=== PATIENT | female | born 1950 | race Caucasian/White ===

== ENCOUNTER 2020-02-19 13:35 | Outpatient (CLI) | payer MEDICARE, SELFPAY ==
--- NOTE | 2020-02-19 15:08 | ECG_ITS ---
Measurements Intervals [place] Rate: 62 P: 56 IA: 178 QRS: 4 QRSD: 76 T: 15 QT: 397 QTc: 404 Interpretive Statements SINUS RHYTHM LOW QRS VOLTAGE IN PRECORDIAL LEADS BORDERLINE R WAVE PROGRESSION, ANTERIOR LEADS BORDERLINE T WAVE ABNORMALITY- INFERIOR LEADS BASELINE ARTIFACT- I, II, III, AVR, AVL, AVF BORDERLINE ECG Electronically Signed On 02-19-2020 16:45:51 PERFECT BINDER OPERATOR by Олег Sherman D.O.
[2020-02-19 15:50] LABS: Basophils Percent Auto 0.4 % (0.2-1.2); Eosinophils Absolute Auto 0.1 K/mm3 (0-0.3); Eosinophils Percent Auto 0.7 % (0-4.4); Hemoglobin 14.2 g/dL (12.0-15.0); Immature Granulocyte Absolute 0.03 K/mm3 (0.00-0.031); Immature Granulocyte Percent A 0.4 % (0-0.5); Lymphocytes Absolute Auto 3.18 K/mm3 (0.9-3.2); Lymphocytes Percent Auto 38.4 % (18.3-44.2); Mean Corpuscular Hemoglobin 33.6 pg (26-34); Mean Corpuscular Volume 101.9 fl (80-100); Mean Platelet Volume 9.2 fl (7.4-10.4); Monocytes Absolute Auto 0.6 K/mm3 (0.1-0.6); Monocytes Percent Auto 7.1 % (2.6-8.5); Neutrophils Absolute Auto 4.4 K/mm3 (1.3-6.7); Platelet Count Result 318 k/mm3 (150-375); Red Blood Count 4.22 M/mm3 (4.2-5.4); Red Cell Distribution Width 11.9 % (11.5-14.5); White Blood Count 8.3 K/mm3 (4.5-10.0)
[2020-02-19 15:59] LABS: INR 0.8
[2020-02-19 16:00] LABS: Partial Thromboplastin Time 26.9 SECONDS (22.3-36.8)
[2020-02-19 16:02] LABS: Alanine Aminotransferase 24 U/L (4-35); Albumin Level 4.6 g/dL (3.5-5.1); Alkaline Phosphatase 87 U/L (38-126); Anion Gap 7 mmol/L (8-16); Aspartate Amino Transferase 31 U/L (14-36); Bilirubin,Total 0.4 mg/dL (0.2-1.3); Blood Urea Nitrogen 22 mg/dL (7-17); Calcium 9.8 mg/dL (8.4-10.2); Carbon Dioxide 32 mmol/L (22-30); Chloride 101 mmol/L (98-107); Estimated Glomerular Filt Rate > 60; Glucose 88 mg/dL (65-105); Potassium 4.2 mmol/L (3.4-5.0); Sodium 140 mmol/L (137-145)
== END 2020-02-19 13:36 | disposition home or self-care (01) ==
PROVIDERS: PCP Family Medicine; Visit Provider Urology
DX: Z01.818 Encounter for other preprocedural examination (principal); N81.10 Cystocele, unspecified; N39.3 Stress incontinence (female) (male)
CPT/HCPCS: 36415; 80053; 85025; 85610; 85730; 86850; 86900; 86901; 87077; 87086; 87088; 87186; 93005

== ENCOUNTER 2020-02-26 00:06 | Outpatient (CLI) | payer MEDICARE, SELFPAY ==
[2020-02-26 19:24] LABS: SARS-CoV-2 RNA PCR Negative
== END 2020-02-26 00:07 | disposition home or self-care (01) ==
LOC: ANHCOVIDDT 00:06
PROVIDERS: PCP Family Medicine; Visit Provider Urology
DX: Z20.828 Contact with and (suspected) exposure to other viral communicable diseases (principal)
CPT/HCPCS: 87635; C9803; U0003

== ENCOUNTER 2020-02-29 01:12 | Day surgery (SDC) | payer MEDICARE, SELFPAY ==
[2020-02-19 14:18] VITALS: BP 140/78; PULSE 72; RESP 16; TEMP 36.7; O2SAT 99; BMI 29.0
--- NOTE | 2020-02-27 08:16 | PM.IMHP ---
H&P: HPI History of Present Illness Date/Time: 02/27/20 08:16 Chief complaint: cystocele, stress incontinence,ovarian cyst Narrative: Liz Howell is a 69 year old female with POP Review of Systems Review of Systems: All systems reviewed & are unremarkable except as noted in HPI and below PMFSH Past Medical History Medical History Acid reflux History of multiple miscarriages x 3 Vaginal delivery x 2 Surgical History Surgical History H/O dilation and curettage H/O: hysterectomy History of cholecystectomy Previous back surgery Family History Family History Sibling Breast cancer Sibling Hypertension Sibling Hypercholesterolemia Father Acute myocardial infarction Mother Acute myocardial infarction Social History Social History Smoking packs per day: 1 Smoking cigarettes per day: 20.0 Years smoked: 22 Smoking pack-years: 22.00 Smoking status: Former smoker Tobacco type: cigarettes Smoking end date: 02/06/89 Alcohol intake: former Drinks per week: 1 Substance use: never Spiritual care concerns: No Meds Home Medications and Allergies Home Medications Medication Instructions Recorded Confirmed Type estradiol 0.5 mg tablet 0.5 mg PO DAILY 12/16/19 02/19/20 History glucosamine-chondroitin 250 mg-200 1 tablet PO DAILY 12/16/19 02/19/20 History mg tablet meloxicam submicronized 5 mg 5 mg PO DAILY 12/16/19 02/19/20 History capsule omega 5-uwe-prn-fish oil 1,000 mg 1 cap PO DAILY 12/16/19 02/19/20 History (120 mg-180 mg) capsule tramadol 50 mg tablet 50 mg PO BID PRN 12/16/19 02/19/20 History cholecalciferol (vitamin D3) 25 mcg PO DAILY 02/19/20 02/19/20 History [Vitamin D3] magnesium 250 mg PO DAILY 02/19/20 02/19/20 History vitamin B complex [B 1 tablet PO DAILY 02/19/20 02/19/20 History Complex-Vitamin B12] Allergies Allergy/AdvReac Type Severity Reaction Status Date / Time Sulfa (Sulfonamide Allergy Intermediate Rash Verified 02/19/20 14:10 Antibiotics) Exam Const: General: cooperative and healthy appearing HENMT: Head: normal to inspection Neck: Neck: normal visual inspection Resp: Effort & Inspection: normal respiratory effort and able to speak in complete sentences GI: Inspection: normal to inspection : Bimanual Exam- Adnexa, other: vaginal apex descent (+3) Skin: General skin exam: normal color Extrem: General: normal to inspection Assessment and Plan Assessment and plan (1) Prolapse of vaginal vault after hysterectomy: Code(s): N99.3 - Prolapse of vaginal vault after hysterectomy Status: Acute Assessment and Plan: Robotic Sacral Colpopexy
[2020-02-29] VITALS (10 sets, daily range): BP systolic 81–136; BP diastolic 39–94; PULSE 56–89; RESP 12–18; TEMP 35.8–36.6; O2SAT 97–100
--- NOTE | 2020-02-29 07:18 | WPDHPUPDATE1 ---
History and Physical Update Update Date/Time: 02/29/20 07:18 History and Physical has been reviewed, including an updated exam of the patient. There are NO changes in the patient's condition. Risks, benefits, and alternatives have been discussed and questions answered. Patient agrees to proceed with procedure.
[2020-02-29] MEDS: ACETAMINOPHEN 500 MG TABLET 1000 MG PO (08:55)
[2020-02-29] MEDS: LACTATED RINGERS 1,000 ML 30 ML IV CONT ×2 (09:00→13:34)
[2020-02-29] MEDS: KETOROLAC 15 MG/ML VIAL (*BKC) IV PUSH (09:15)
--- NOTE | 2020-02-29 09:22 | WPDANESEPPF ---
Anes - Initial Pre Proc Eval Procedure: Operation Date: 02/29/20 10:30 Proposed Procedures p Robotic Sacrocolpopexy - Anshu Engel MD s Laparoscopic Left Oophorectomy, Davinci Assisted - Livan Schulte MD Date/Time: 02/29/20 09:22 Surgeon: Anshu Engel MD Pre Op Diagnosis: cystocele, stress incontinence,ovarian cyst Patient Data Age: 69 Gender: F Height: 5 ft 2 in Weight: 72.1 kg Last Vital Signs Temp 98.0 F 02/19/20 14:18 Pulse 72 02/19/20 14:18 Resp 16 02/19/20 14:18 BP 140/78 02/19/20 14:18 Pulse Ox 99 02/19/20 14:18 Allergies Allergy/AdvReac Type Severity Reaction Status Date / Time Sulfa (Sulfonamide Allergy Intermediate Rash Verified 02/29/20 09:20 Antibiotics) Home Medications Medication Instructions Recorded Confirmed Type estradiol 0.5 mg tablet 0.5 mg PO DAILY 12/16/19 02/29/20 History glucosamine-chondroitin 250 mg-200 1 tablet PO DAILY 12/16/19 02/29/20 History mg tablet meloxicam submicronized 5 mg 5 mg PO DAILY 12/16/19 02/29/20 History capsule omega 3-gxz-tws-fish oil 1,000 mg 1 cap PO DAILY 12/16/19 02/29/20 History (120 mg-180 mg) capsule tramadol 50 mg tablet 50 mg PO BID PRN 12/16/19 02/29/20 History cholecalciferol (vitamin D3) 25 mcg PO DAILY 02/19/20 02/29/20 History [Vitamin D3] magnesium 250 mg PO DAILY 02/19/20 02/29/20 History vitamin B complex [B 1 tablet PO DAILY 02/19/20 02/29/20 History Complex-Vitamin B12] Patient hx anesthesia problems: none Family hx anesthesia problems: none PMFSH Past Medical History Medical History (Updated 02/29/20 @ 09:22 by Toni Zambrano MD) Acid reflux Chronic back pain History of multiple miscarriages x 3 Vaginal delivery x 2 Surgical History Surgical History H/O dilation and curettage H/O: hysterectomy History of cholecystectomy Previous back surgery Family History Family History Sibling Breast cancer Sibling Hypertension Sibling Hypercholesterolemia Father Acute myocardial infarction Mother Acute myocardial infarction Social History Social History Smoking packs per day: 1 Smoking cigarettes per day: 20.0 Years smoked: 22 Smoking pack-years: 22.00 Smoking status: Former smoker Tobacco type: cigarettes Smoking end date: 02/06/89 Alcohol intake: former Drinks per week: 1 Alcohol use details: DRANK RARELY YOUNG ADULT Substance use: never Living arrangements: alone Spiritual care concerns: No Anes - Eval Final PreProcedure Day of Procedure 02/29/20 09:22 Patient weight: normal Heart: regular rate and rhythm Lungs: clear to auscultation Airway: Mallampati scale class II Neurological: alert and oriented Last oral intake: >/= 8 hours ASA classification: III Emergent: no Anesthetic plan: proceed Anesthesia type and monitoring: general ETT and standard monitoring Informed Consent: The patient's anesthetic plan and its attendant risks and benefits were discussed with the patient/family/POA. Questions were solicited and answers provided to the satisfaction of the patient/family/POA.
--- NOTE | 2020-02-29 10:04 | PM.IMHP ---
H&P: HPI History of Present Illness Date/Time: 02/29/20 10:04 Chief complaint: cystocele, stress incontinence,ovarian cyst Narrative: Liz Howell is a 69 year old female presented for evaluation of a 6cm adnexal cyst seen on imaging. She is asymptomatic. She had a normal Ca125. Her history is significant for a hysterectomy and left oophorectomy and prior to that she had a right oophorectomy. She was informed of the possible etiologies of the cyst to include ovarian remnant, inflammation, tubal segment. She was given option of expectant management but since she was evaluated for prolapse by Dr. Engel and has planned vaginal vault sacrocolpopexy then can remove the cyst at that time which she wishes to proceed with removal of the cyst at the same time. Discussed that if any abnormal pathology then she may need for evaluation or referral. Review of Systems Review of Systems: All systems reviewed & are unremarkable except as noted in HPI and below Cardiovascular: Cardiovascular: Reports no additional cardiovascular complaints, Denies chest pain and Denies dyspnea Respiratory: Respiratory: Reports no additional respiratory complaints and Denies dyspnea Gastrointestinal: Gastrointestinal: Reports abdominal pain, Denies change in bowel habits, Denies diarrhea, Denies nausea and Denies vomiting Musculoskeletal: Musculoskeletal: Reports back pain Integumentary/Breasts: Skin/Breast: Reports system reviewed and no additional complaints, except as docu Neurologic: Reports system reviewed and no additional complaints, except as documented PMFSH Past Medical History Medical History Acid reflux Chronic back pain History of multiple miscarriages x 3 Vaginal delivery x 2 Surgical History Surgical History H/O dilation and curettage H/O: hysterectomy History of cholecystectomy Previous back surgery Family History Family History Sibling Breast cancer Sibling Hypertension Sibling Hypercholesterolemia Father Acute myocardial infarction Mother Acute myocardial infarction Social History Social History Smoking packs per day: 1 Smoking cigarettes per day: 20.0 Years smoked: 22 Smoking pack-years: 22.00 Smoking status: Former smoker Tobacco type: cigarettes Smoking end date: 02/06/89 Alcohol intake: former Drinks per week: 1 Alcohol use details: DRANK RARELY YOUNG ADULT Substance use: never Living arrangements: alone Spiritual care concerns: No Meds Home Medications and Allergies Home Medications Medication Instructions Recorded Confirmed Type estradiol 0.5 mg tablet 0.5 mg PO DAILY 12/16/19 02/29/20 History glucosamine-chondroitin 250 mg-200 1 tablet PO DAILY 12/16/19 02/29/20 History mg tablet meloxicam submicronized 5 mg 5 mg PO DAILY 12/16/19 02/29/20 History capsule omega 5-vht-rcp-fish oil 1,000 mg 1 cap PO DAILY 12/16/19 02/29/20 History (120 mg-180 mg) capsule tramadol 50 mg tablet 50 mg PO BID PRN 12/16/19 02/29/20 History cholecalciferol (vitamin D3) 25 mcg PO DAILY 02/19/20 02/29/20 History [Vitamin D3] magnesium 250 mg PO DAILY 02/19/20 02/29/20 History vitamin B complex [B 1 tablet PO DAILY 02/19/20 02/29/20 History Complex-Vitamin B12] Allergies Allergy/AdvReac Type Severity Reaction Status Date / Time Sulfa (Sulfonamide Allergy Intermediate Rash Verified 02/29/20 09:20 Antibiotics) Vital Signs Vital Signs - 24 hr 02/29/20 08:32 Temperature 96.5 F L Pulse Rate 60 Respiratory Rate 18 Blood Pressure 135/56 L Pulse Oximetry 100 Exam Const: Orientation/consciousness: oriented to person and oriented to place HENMT: Head: normal to inspection Eyes: General: appearance normal, both eyes an
--- NOTE | 2020-02-29 10:46 | WPDHPUPDATE1 ---
History and Physical Update Update Date/Time: 02/29/20 10:46 History and Physical has been reviewed, including an updated exam of the patient. There are NO changes in the patient's condition. Risks, benefits, and alternatives have been discussed and questions answered. Patient agrees to proceed with procedure.
[2020-02-29] MEDS: ceFAZolin 2 GM/D5W 50 ML 2 GM/50 ML BAG IVPB (10:51)
--- NOTE | 2020-02-29 11:38 | PM.PROC ---
Procedure Note - Detailed Date of procedure: 03/28/20 Pre-op diagnosis: cystocele, stress incontinence,ovarian cyst 1. left Adnexal cyst Post-op diagnosis: same Procedure performed: Excision of left adnexal cyst Description of procedure: I assumed care after Dr. Engel placed ports. He performed lysis adhesions in the pelvis. I then lysed the remaining adhesions along the left pelvic sidewall which freed the cyst from the wall the cyst was completely freed and excised. The cyst was placed in the endocath bag. Dr. Engel then resumed care. Anesthesia: GETA Surgeon: Livan Schulte MD Estimated blood loss (mL): 0 Drains: No Packing: No Pathology: yes (left adnexal cyst consistent with fallopian tube and hydrosalpinx) Complications: No immediate complications Condition: stable Disposition: other Findings: 6cm cyst which appeared to be fallopian tube structure attached to left upper side wall.
--- NOTE | 2020-02-29 13:20 | PM.PROC ---
Procedure Note - Detailed Date of procedure: 02/29/20 Pre-op diagnosis: cystocele, stress incontinence,ovarian cyst Procedure performed: Robotic assisted laparoscopic sacral colpopexy Description of procedure: She understands the risks of bleeding, infection, diskitis, damage to surrounding organs, bowel injury, bowel obstruction, recurrence of prolapse, postoperative voiding dysfunction including incontinence and retention, dyspareunia, mesh related complications including exposure and extrusion, need for ancillary procedures. She agrees to proceed. She was correctly identified and informed consent was obtained. She is brought to the operating room. She was given general anesthesia. She was placed in the low lithotomy position. She was prepped and draped in a sterile fashion. She was given appropriate perioperative antibiotics. A time-out was performed. I anesthetized the skin 3 fingerbreadths above the umbilicus. I incised the skin. I grasped the fascia with Stanislav clamps. I entered the fascia sharply. I placed sutures for later fascial closure. I placed a midline trocar. Under direct vision I placed 2 additional trocars in the right and left upper quadrant. She was placed in steep Trendelenburg and the robot was docked. I sat at the console. Adhesions iwere taken down with a combination of blunt and sharp dissection with no cautery taking great care not to injure surrounding organs. Her mortgage professional removed an adnexal cyst. Please see that operative report. With the Sizer in the vagina and created a plane on the anterior and posterior vaginal wall for several cm using great care not to injure the vagina bladder or rectum. I introduced the mesh into the abdomen. I sewed the anterior leaflet of mesh on the anterior vaginal wall and posterior leaflet of mesh on the posterior vaginal wall with several sutures of 2 0 [place]-Pedro taking great care not to go through and through. I reflected the colon laterally. I opened up the peritoneum over the sacral promontory. I carried this into the cul-de-sac freeing up the edges. I located the ureter and kept lateral. I dissected down to the fatty tissues to locate the anterior longitudinal ligament of the sacrum. Any vessels were controlled with bipolar cautery. I tensioned my mesh appropriately. I did a vaginal exam to assure prolapse reduction without undue tension. There is no sign of any mesh exposure in the vagina. I then sewed the proximal leaflet of mesh onto the ligament with 3 sutures of 2 2 0 [place]-Pedro. I then used a 2 0 Monocryl to completely and meticulously retroperitonealized all mesh. I allowed the colon to go back into its normal anatomic location. There is no sign of any impingement. The abdomen was exited. Fascial sutures were closed. Skin was closed with 4 0 Monocryl and glue was applied. On cystoscopy there is no sign of any violation of the bladder or urethra and no foreign bodies. Ureteral orifices were seen to excrete clear yellow urine. There was no leakage on Crede a maneuver. The Coughlin catheter is replaced. She was then awakened and transferred to the PACU in stable condition. Anesthesia: GET Surgeon: Anshu Engel MD Drains: Yes (Coughlin catheter) Packing: No Pathology: none sent Complications: No immediate complications Condition: stable Disposition: PACU
[2020-02-29] MEDS: ONDANSETRON INJ 4 MG/2 ML VIAL IV PUSH (14:02)
[2020-02-29] MEDS: fentaNYL CITRATE INJ (*CRX) 100 MCG/2 ML VIAL 25 MCG IV PUSH ×4 (14:03→14:19)
[2020-02-29] MEDS: MEPERIDINE HCL INJ (*CRX) 50 MG/ML AMPUL 12.5 MG IV PUSH (14:31)
--- NOTE | 2020-02-29 14:36 | SUR.PHASEI ---
1430 pt complaints shivering,called dr lujan,orders for demerol ,and given with relief of shivering.
--- NOTE | 2020-02-29 15:32 | SUR.PHASEII ---
PT UP TO BATHROOM; PT STATED SHE FELT DISCHARGE FROM URETHRA; PERIPAD SATURATED WITH CLEAR FLUID.
[2020-02-29] MEDS: oxyCODONE HCL (*CRX) 5 MG TAB IR PO (15:47)
== END 2020-02-29 16:24 | disposition home or self-care (01) ==
PROVIDERS: Obstetrics & Gynecology; PCP Family Medicine; Visit Provider Urology
PROC: (CPT 57425; principal; 2020-02-29 10:30)
PROC: 8E0W4CZ Robotic Assisted Procedure of Trunk Region, Percutaneous Endoscopic Approach (ICD-10-PCS; CPT 49320; 2020-02-29 10:30)
DX: N99.3 Prolapse of vaginal vault after hysterectomy (principal); N39.3 Stress incontinence (female) (male); N83.202 Unspecified ovarian cyst, left side; N70.11 Chronic salpingitis; Z87.891 Personal history of nicotine dependence
CPT/HCPCS: 57425; 58662; S2900; 88305; A9270; C1781; J0690; J1100; J1885; J2175; J2250; J2405; J2704; J2710; J3010; J7030; J7120

== ENCOUNTER 2024-11-27 15:39 | Emergency (ER) | payer MEDICARE, SELFPAY ==
--- OUTSIDE RECORDS SUMMARY | 2024-11-27 15:41 | XMS_ITS | Encounter Summary ---
[facility] Organization [facility] Address [address] [place] [address] Phone Care Team Providers Care Police Shift Commander Name Role Phone Murtaza Porras MD Primary Care Provider [phone] Lindsey Hong APRN, DRIFT MINER Unavailable [phone] Marisela Zheng MD Primary Care Provider [phone] Bubba Fung Primary Care Provider [phone] Reason for Referral * Radiology Services (Routine) - Closed Specialty Diagnoses / Procedures Referred By Bebeto roberts Referred To Contact Radiology Diagnoses Pre-op exam Procedures EKG 12 LEAD Raj Ferrer MD Phone: tel: fax: Referral ID Status Reason Start Date Expiration Date Visits Re quested Visits Authorized [id number] Closed 05/22/2021 1 1 IOPULMONARY TECHNOLOGIST Encounter Details Date Type Department Care Team (Latest Contact Info) Description 05/22/2021 Transcribe Orders [facility] Patient Access Admitting [address] [place] [id number] Raj Ferrer MD [address] [place] [address] Pre-op exam (Primary Dx) Social History Tobacco Use Types Packs/Day Years Used Date Smoking Tobacco: Former Cigarettes 1 20 0 10/15/1970 - 10/15/1990 Smokeless Tobacco: Never Comments:quit 27 years ago Alcohol Use Standard Drinks/Week Comments No 0 (1 standard drink = 0.6 oz pur e alcohol) none PHQ-2 Answer Date Recorded Total Score - Questions 1-9 0 08/07 Education Answer Date Recorded What is the highest level of school you have completed or the highest degree you have received? 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 No / Unsure 05/22/2021 9:10 PM CARDIOPULMONARY TECHNOLOGIST documented as of this encounter Plan of Treatment Upcoming Encounters Date Type Department Care Team (Late st Contact Info) Description 02/12/2025 8:40 AM CARDIOPULMONARY TECHNOLOGIST Lab [facility] - [address] [address] [facility] 02/19/2025 9:00 AM CARDIOPULMONARY TECHNOLOGIST Office Visit [facility] - [place] [address] [place] [address] Bubba Fung, PAC [address] [place] [address] documented as of this encounter Results * EKG 12 LEAD (05/23/2021 11:33 AM CARDIOPULMONARY TECHNOLOGIST) Ventricular Rate BPM EXTERNAL EKG Atrial Rate BPM EXTERNAL EKG P-R Interval 152 ms EXTERNAL EKG QRS Duration 70 ms EXTERNAL EKG Q-T Duration 336 ms EXTERNAL EKG QTC CALCULATION 388 ms EXTERNAL EKG P [place] 68 degrees EXTERNAL EKG R [place] 61 degrees EXTERNAL EKG T [place] 10 degrees EXTERNAL EKG 05/23/2021 11:3 3 AM CARDIOPULMONARY TECHNOLOGIST Impressions EXTERNAL EKG - 05/24/2021 11:50 AM CARDIOPULMONARY TECHNOLOGIST Sinus rhythm Anterior T wave abnormality is nonspecific Comparison Summary: No serial comparison made Summary: Borderline ECG Confirmed by Johnathon Cortez [id number] on 05/24/2021 11:50:14 AM Narrative Procedure Note Arabella Diego MD - 05/24/2021 IMPRESSION: Sinus rhythm Anterior T wave abnormality is nonspecific Comparison Summary: No serial comparison made Summary: Borderline ECG Confirmed by Johnathon Cortez [id number] on 05/24/2021 11:50:14 AM us Raj Ferrer MD IMG ECG ORDERABLES Final Result EXTERNAL EKG * (ABNORMAL) CMP (COMPREHENSIVE METABOLIC PANEL) (05/23/2021 11:28 AM CARDIOPULMONARY TECHNOLOGIST) SODIUM 141 136 - 144 mmol/L 05/23/2021 12:32 PM CARDIOPULMONARY TECHNOLOGIST [facility] POTASSIUM 4.6 3.5 - 5.1 mmol/L 05/23/2021 12:32 PM [facility] CHLORIDE 106 100 - 110 mmol/L 05/23/2021 12:32 PM [facility] CO2, VENOUS 25 22 - 32 mmol/L 05/23/2021 12:32 PM CARDIOPULMONARY TECHNOLOGIST [facility] ANION GAP 14.6 8.0 - 20.0 mmol/L 05/23/2021 12:32 PM CARDIOPULMONARY TECHNOLOGIST [facility] GLUCOSE 85 70 - 99 mg/dL 05/23/2021 12:32 PM CARDIOPULMONARY TECHNOLOGIST [facility] BUN 18 8 - 23 mg/dL 05/23/2021 12:32 PM [facility] CREATININE, BLOOD 0.68 0.60 - 1.10 mg/dL 05/23/2021 12:32 PM [facility] BUN/CREATININE RATIO 26(H) 12 - 20 ratio 05/23/2021 12:32 PM [facility] TOTAL PROTEIN 7.1 6.0 - 8.3 g/dL 05/23/2021 12:32 PM [facility] ALBUMIN 4.5 3.5 - 5.2 g/dL 05/23/2021 12:32 PM [facility] Comment: The colormetric methods used for the determination of Albumin may lead to falsely elevated test results in patients suffering from renal failure or insufficiency due to interference with other proteins. A/G RATIO 1.7 1.0 - 2.0 05/23/2021 12:32 PM [facility] CALCIUM 9.5 8.9 - 10.3 mg/dL 05/23/2021 12:32 PM [facility] T BILI <0.3 <=1.2 mg/dL 05/23/2021 12:32 PM [facility] SGOT (AST) 20 <=32 U/L 05/23/2021 12:32 PM [facility] SGPT (ALT) 19 <=41 U/L 05/23/2021 12:32 PM [facility] ALKALINE PHOSPHATASE 81 35 - 105 U/L 05/23/2021 12:32 PM [facility] GFR, EST. NONAFRICAN >60 >=60 05/23/2021 12:32 PM [facility] GFR, EST. >60 >=60 022 12:32 PM [facility] Comment: Creatinine Clearance is the preferred criteria for selecting drug dose adjustments in renally impaired patients. The GFR is provided as additional pertinent clinical information. GFR is reported in mL/min/1.73 sq m. IS THE PATIENT REQUIRED TO BE FASTING? No 05/23/2021 12:32 PM [facility] Blood Venipuncture / Unknown 05/23/2021 11:28 AM CARDIOPULMONARY TECHNOLOGIST 05/23/2021 11:47 AM CARDIOPULMONARY TECHNOLOGIST us Raj Ferrer MD CHEMISTRY ORDERABLES Final Resul t [facility] [address] [place] [address] documented in this encounter Visit Diagnoses Diagnosis Pre-op exam- Primary Preoperative examination, unspecified Pre-op exam Preoperative examination, unspecified documented in this encounter Additional Health Concerns Assessment Noted Time PHQ-9 Depression Total Score: 0 09/01/19 20 8:22 AM CDT documented as of this encounter Care Teams Police Shift Commander Relationship Specialty Start Date End Date Murtaza Porras MD #[address] [address] PCP - General Family Medicine 03/16/16 07/02/22 Marisela Zheng MD [address] [place], [place] [id number] PCP - General Family Medicine 07/03/22 01/31/23 Bubba Fung, PAC [address] [place] [id number] PCP - General Physician [employer] Set Up Technician 02/01/23 Lindsey Hong, TECHNICAL SALES REPRESENTATIVE, DRIFT MINER [address] [address] Nurse Practitioner Advanced Practice Nurse 03/22/16 documented as of this encounter
--- OUTSIDE RECORDS SUMMARY | 2024-11-27 15:41 | XMS_ITS | Encounter Summary ---
Author Organization [facility] Address [address] [place] [address] Phone Care Team Providers Care Satellite Television Installer Name Role Phone Murtaza Porras MD Primary Care Provider [phone] Lindsey Hong APRN, DENTIST Unavailable [phone] Marisela Zheng MD Primary Care Provider + [phone] Bubba Fung Primary Care Provider + [phone] Reason for Visit * Reason Comments Medication Refill Encounter Details Date Type Department Care Team (Late st Contact Info) Description 11/22/2020 Refill [facility] - Family Medicine [facility] [address] [place] [address] Murtaza Porras MD [address] [address] Medication Refill Social History Tobacco Use Types Packs/Day Years [...] have received? 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 Requested Prescriptions Pending Prescriptions Disp Refills estradiol (ESTRACE) 0.5 MG Tablet [Pharmacy Med Name: ESTRADIOL 0.5MG TABLETS] 90 Tablet 2 Sig: TAKE 1 TABLET BY MOUTH DAILY Not Delegated - Estrogen and Estrogen Combinations Protocol Failed - 11/22/2020 3:10 AM Failed - This refill cannot be delegated Passed - Visit with relevant provider in past 12 months or upcoming 90 days Recent Visits Date Type Provider Dept 09/30/20 Office Visit Murtaza Porras MD [facility] 04/20/20 Telemedicine Murtaza Porras MD [facility] 03/29/20 Office Visit Murtaza Porras MD [facility] Showing recent visits within past 365 days and meeting all other requirements Future Appointments No visits were found meeting these conditions. Showing future appointments within next 90 days and meeting all other requirements documented in this encounter Plan of Treatment Upcoming Encounters Date Type Department Care Team (Late st Contact Info) Description 02/12/2025 8:40 AM HEALTH PLAN MANAGER Lab [facility] [address] [place] [address] [facility] 02/19/2025 9:00 AM HEALTH PLAN MANAGER Office Visit [facility] Primary [facility] [place] [address] [place] [address] Bubba Fung, [facility] [address] [place] [id number] documented as of this encounter Visit Diagnoses Not on filedocumented in this encounter Additional Health Concerns Infection Onset Date Last Indicated Resolved Time COVID - 19 03/05/2021 03/05/2021 03/25/2021 12:1 6 AM HEALTH PLAN MANAGER Assessment Noted Time PHQ-9 Depression Total Score: 0 09/01/19 20 8:22 AM CDT documented as of this encounter Care Teams Satellite Television Installer Relationship Specialty Start Date End Date Murtaza Porras MD [address] [address] PCP - General Family Medicine 03/16/16 07/02/22 Marisela Zheng MD [address] [place], [place] [id number] PCP - General Family Medicine 07/03/22 01/31/23 Bubba Fung, PAC [address] [place] [phone] PCP - General Physician Enterprise Resource Analyst 02/01/23 Lindsey Hong, STE[employer] FORM PLACING SUPERVISOR, DENTIST [address] [address] Nurse Practitioner Advanced Practice Nurse 03/22/16 documented as of this encounter
--- OUTSIDE RECORDS SUMMARY | 2024-11-27 15:41 | XMS_ITS | Clinical Summary ---
Author Organization [facility] Address [address], [facility] [address] [place] [address] Phone Care Team Providers Care Freezer Unloader Name Role Phone Lindsey Hong APRN, SALES REPRESENTATIVE ELECTRIC SERVICE Unavailable Bubba Fung PAC Primary Care Provider Allergies Active Allergy Reactions Criticality Noted Date Comments Amoxicillin-Pot Clavulanate Itching 11/14/19 24 Dizziness, itching Sulfa Antibiotics Hives 03/30/2016 Medications traMADol (ULTRAM) 50 MG Tablet Take 50 mg by mouth 3 times daily as needed. 03/14/20 16 Active [place]-3 Fatty Acids (FISH OIL PO) Take by mouth daily. Active meloxicam (MOBIC) 7.5 MG Tablet TK 1 T PO QD WF 3 06/26/19 18 Active Glucosamine-Chondroitin (OSTEO BI-FLEX REGULAR STRENGTH PO) Take by mouth. Active cetirizine (ZyrTEC) 10 MG Tablet Take 10 mg by mouth as needed. Active Cyanocobalamin (B-12 PO) Take by mouth. Active Cholecalciferol (Vitamin D3) 25 MCG (1000 UT) Capsule Take 1,000 Units by mouth daily. 90 Capsule 3 11/23/19 22 Active CALCIUM PO Take by mouth. Active omeprazole (PriLOSEC) 20 MG CAPSULE DELAYED RELEASEIndications:Gastr oesophageal reflux disease, unspecified whether esophagitis present Take 1 Capsule by mouth daily. 90 Capsule 3 08/13/19 25 Active atorvastatin (LIPITOR) 10 MG TabletIndications:Pure hypercholesterolemia Take 1 Tablet by mouth daily. 90 Tablet 3 08/13/19 25 Active estradiol (ESTRACE) 0.5 MG Tablet TAKE 1 TABLET BY MOUTH EVERY DAY 90 Tablet 10/22/19 25 Active Active Problems Problem Noted Date Diagnosed Date Metatarsalgia of left foot 08/12/2024 Macrocytosis without anemia 02/01/2023 Secondary osteoporosis 06/07/2022 Liver lesion 03/22/2021 Squamous cell carcinoma in situ (SCCIS) of skin 09/30/2020 Chronic right shoulder pain 09/30/2020 B12 deficiency 09/30/2020 Obesity (BMI 30-39.9) 03/29/2020 Hyperlipidemia 09/01/2019 Insomnia 09/18/2018 Generalized OA 03/20/2018 Conductive hearing loss, tympanic membrane 07/17 Tympanosclerosis involving tympanic membrane onl y, right 07/17/2017 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, left 07/17/2017 Chronic otitis media of right ear 07/17/2017 Perforated ear drum, right 07/17/2017 Ear ossicle partial loss or necrosis, right 07/07 Vitamin D deficiency 03/26/2016 Gastroesophageal reflux disease 03/16/2016 History of back surgery 03/16/2016 Chronic pain syndrome 03/16/2016 Resolved Problems Problem Noted Date Diagnosed Date Resolved Date Yeast infection of the vagina 03/07/2022 02/01/2023 Hormone replacement therapy (HRT) 11/22/2021 08/12/2024 Left ovarian cyst 11/13/2019 08/12/2024 Hematuria 09/01/2019 02/01/2023 Blood pressure elevated with out history of HTN 03/16/2016 02/01/2023 Overweight 03/16/2016 02/01/2023 Encounters Date Type Department Care Team Description 10/21/2024 Refill [facility] - [place] [address] [place] [address] Bubba Fung, LUPE Medication Refill from Last 3 Months Immunizations Immunization Administration Dates Next Due Covid-19, Mrna, Lnp-s, PF, 1 00 mcg/0.5 mL Dose (Moderna) 06/27/2020,05/27/2020 Influenza Vaccine 02/18/2017,02/26/2016 Influenza Vaccine greater than 3 yrs 02/2020,01/02/2019,12/16/2017,02/18,02/26/2016 Influenza Vaccine less than 3 yrs 01/02/2019 Influenza, High-dose, Quadrivalent 01/24/2021,,02/26/2016 Influenza, Injectable, Mdck,quadrivalent,with Preservative 01/02/2019 Influenza, Quadrivalent, Adjuvanted 02/01/2023,0 01/04/2022 Influenza, Seasonal, Injecta ble, Undefined 03/18/2020,01/02/2019,12/16/2017,02/26 Influenza, high-dose, trivalent, PF 06/2023,03/18/2020,02/18/2017,02/25 PNEUMONIA ADULT IM PPSV23 12/16/2017 PUR PCV-13 07/12/2016 Pneumococcal Vaccine - 13 Valent 12/16/2017,09/2016 Pneumococcal Vaccine Adult - 23 Valent 8 Pneumococcal conjugate PCV20 , polysaccharide [id number] conjugate, adjuvant, PF 03/13/2023 RSV, Recombinant, Protein Galvez bunit Rsvpref, Adjuvant Recon (Arexvy) 03/13/2023 TDAP Vaccine 11/03/2024 Zoster Vaccine Recombinant 11/03/2024,08/11/2024 Family History Medical History Relation Name Comments Heart Attack Brother Heart Attack Father Diabetes Maternal Grandmother Autoimmune Disease Mother HEPATITIS Liver Disease Mother Uterine Cancer Sister 1 Breast Cancer Sister 2 Relation Name Status Comments Brother Father Maternal Grandmother Mother Sister 1 Alive Sister 2 Alive Social History Tobacco Use Types Packs/Day Years Used Date Smoking Tobacco: Former Cigarettes 1 20 0 10/15/1970 - 10/15/1990 Smokeless Tobacco: Never Tobacco Cessation:Counseling Given: Not Answered Comments:quit 27 years ago Alcohol Use Standard Drinks/Week Comments No 0 (1 standard drink = 0.6 oz pur e alcohol) none [facility] Utilities Answer Date Recorded In the past 12 months has e [employer], gas, oil, or water company threatened to shut off services in your home? No 08/10/2024 Social Connection and Isolation Panel Answer Date Recorded In a typical week, how many times do you talk on the phone with family, friends, or neighbors? More than three times a week 08/10/2024 How often do you get togethe r with friends or relatives? Three times a week 08/10/2024 How often do you attend chur or buddhism services? More than 4 times per year 08/10/2024 Do you belong to any clubs o r organizations such as oriental orthodox groups, unions, fraternal or athletic groups, or school groups? Yes 08/10/2024 How often do you attend meet ings of the clubs or organizations you belong to? 1 to 4 times per year 08/10/2024 Are you , , di vorced, , never , or living with a partner? 08/10/2024 AUDIT-C Answer Date Recorded Q1: How often do you have a drink containing alcohol? Never 08/10/2024 Q2: How many drinks containi ng alcohol do you have on a typical day when you are drinking? Patient does not drink Q3: How often do you have si x or more drinks on one occasion? Never 08/10/2024 Overall Financial Resource Strain (CARDIA) Answe r Date Recorded How hard is it for you to pa y for the very basics like food, housing, medical care, and heating? Not hard at all 08/10/2024 PHQ-2 Answer Date Recorded Total Score - Questions 1-9 0 07/07 [facility] - Occupational Stress Questionnaire Answer Date Recorded Do you feel stress - tense, restless, nervous, or anxious, or unable to sleep at night because your mind is troubled all the time - these days? Not at all 08/10/2024 Exercise Vital Sign Answer Date Recorde d On average, how many days pe r week do you engage in moderate to strenuous exercise (like a brisk walk)? 7 days 08/10/2024 On average, how many minutes do you engage in exercise at this level? 30 min 08/10/2024 Hunger Vital Sign Answer Date Recorded Within the past 12 months, y ou worried that your food would run out before you got the money to buy more. Never true 08/11/19 25 Within the past 12 months, t he food you bought just didn't last and you didn't have money to get more. Never true 08/10/2024 PRAPARE - Transportation Answer Date Re corded In the past 12 months, has l ack of transportation kept you from medical appointments or from getting medications? No 08/2024 In the past 12 months, has l ack of transportation kept you from meetings, work, or from getting things needed for daily living? No 08/10/2024 Housing Stability Vital Sign Answer Wesley e Recorded In the last 12 months, was t here a time when you were not able to pay the mortgage or rent on time? No 06/07/2023 In the last 12 months, how many places have you lived? 1 06/07/2023 In the last 12 months, was t here a time when you did not have a steady place to sleep or slept in a custodial (including now)? No 06/07/2023 Housing Stability Vital Sign Answer Wesley e Recorded In the last 12 months, was t here a time when you were not able to pay the mortgage or rent on time? No 08/10/2024 In the past 12 months, how m any times have you moved where you were living? 0 08/10/2024 At any time in the past 12 m [facility], were you homeless or living in a custodial (including now)? No 08/10/2024 Education Answer Date Recorded What is the highest level of school you have completed or the highest degree you have received? 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 on file Not on file Not on file Last Filed Vital Signs Vital Sign Reading Time Taken Comments Blood Pressure 140/64 08/12/2024 8:54 AM CDT Pulse 73 08/12/2024 8:54 AM CDT Temperature 37 C (98.6 F) 08/12/2024 8:54 AM CDT Respiratory Rate 18 08/12/2024 8:54 AM CDT Oxygen Saturation 98% 08/12/2024 8:54 AM CDT Inhaled Oxygen Concentration - - Weight 74.4 kg (164 lb) 08/12/2024 8:54 AM CDT Height 157.5 cm (5' 2) 02/01/2023 9:20 AM CDT Body Mass Index 30 02/01/2023 9:20 AM CDT Plan of Treatment Upcoming Encounters Date Type Department Care Team (Late st Contact Info) Description 02/12/2025 8:40 AM ASTRONOMY INSTRUCTOR Lab [facility] [address] [place], [place] [address] [address] [facility], [facility] 02/19/2025 9:00 AM ASTRONOMY INSTRUCTOR Office Visit [facility] [address] [place] [address] Bubba Fung PAC [address] [place] [address] Health Maintenance Due Date Last Done Comments Cologuard 11/21/1995 Immunochemical Fecal Occult Blood 11/21/1995 SARS-COV-2 Immunization ( season) 2023 04/25/2022, 03/21/2021, 06/27/2020, Additional history exists DEXA Bone Density 12/09/2023 12/08/2021, , 02/07/2017, Additional history exists Influenza Immunization (#1) 12/07/202406/2023, 02/01/2023, 01/04/2022, Additional history exists Mammogram 04/29/2025 04/29/2024, 04/08, 12/08/2021, Additional history exists Colonoscopy 10/15/2026 10/15/2016 Colorectal Cancer Screening 10/15/2026 Td Immunization Every 10 Years (Adults With 1 Tdap) 11/03/2034 11/03/2024 Hepatitis C Virus (HCV) Screening Completed 10/02/2019 Pneumococcal Immunization (50+ years) Completed 03/13/2023, 12/16/2017, 12/16/2017, Additional history exists Pneumococcal Immunization Combined Discontinued 03/13/2023, 12/16/2017, 12/16/2017, Additional history exists Respiratory Syncytial Virus (RSV) Immunization (Adult) Completed 03/13/2023 TdaP Immunization Discontinued 11/03/2024 Zoster Immunization Completed 11/03/2024, Hepatitis B Immunization Aged Out No longer eligible based on patient's age to complete this topic Human Papillomavirus (HPV) Immunization Aged Out No longer eligible based on patient's age to complete this topic Meningococcal Immunization (ACWY) Aged Out No longer eligible based on patient's age to complete this topic Rotavirus Immunization Aged Out No lo nger eligible based on patient's age to complete this topic Procedures Procedure Name Priority Date/Time Associated Diagnosis Comments JERSON SCREENING BILATERAL DIGITAL W CAD W YADIEL Routine 04/29/2024 8:49 AM ASTRONOMY INSTRUCTOR Breast cancer screening by mammogram [facility] BONE DENSITOMETRY AXIAL SKELETON Routine 12/08/2021 7:45 AM CDT Postmenopausal HEPATITIS C ANTIBODY Routine 10/02/2019 7:20 AM CDT Encounter for hepatitis C screening test for low risk patient from Last 3 Months or Most Recently Relevant to Health Maintenance Results * JERSON SCREENING BILATERAL DIGITAL W CAD W YADIEL (04/29/2024 8:49 AM ASTRONOMY INSTRUCTOR) Anatomical Region Laterality Modality breast Bilateral Mammography 04/29/2024 9:20 AM ASTRONOMY INSTRUCTOR Narrative 04/29/2024 2:44 PM ASTRONOMY INSTRUCTOR - JERSON SCREENING BILATERAL DIGITAL W CAD W YADIEL BILATERAL DIGITAL SCREENING MAMMOGRAM 3D/2D WITH CAD WITH MEDIOLATERAL OBLIQUE CRANIOCAUDAL: 04/29/2024 The study was acquired using digital technology and interpreted from soft copy. Current study was also evaluated with ICAD version 7.2. 2D digital mammographic views, as well as 3D digital tomosynthesis were performed in the CC and MLO projections. CLINICAL: Routine screening. Patient has no complaints. Personal history of squamous cess carcinoma. Sister with postmenopausal breast cancer. COMPARISONS: Comparison is made to exams dated: 04/17/2023, 12/08/2021, 04/28/2020, 04/12/2020 [facility], and 04/15/2019 [facility]. BREAST TISSUE:There are scattered areas of fibroglandular density. FINDINGS: There are benign calcifications in both breasts. No significant masses, calcifications, or other findings are seen in either breast. There has been no significant interval change. IMPRESSION: BENIGN There is no mammographic evidence of malignancy. A 1 year screening mammogram is recommended. A letter will be sent to the patient with these results. The patient will be entered into a reminder system with a target due date of 1 year for her next screening exam. Electronically signed by: Ann Marie miguel/penharleen:04/29/2024 12:49:04 Commercial Real Estate Appraiser(s): RT Bipin(R)(M), [facility] letter sent: Normal Exam Reading location: [facility] Mammogram BI-RADS: Category 2: Benign Procedure Note Ann Marie Hdz MD - 04/29/2024 - JERSON SCREENING BILATERAL DIGITAL W CAD W YADIEL BILATERAL DIGITAL SCREENING MAMMOGRAM 3D/2D WITH CAD WITH MEDIOLATERAL OBLIQUE CRANIOCAUDAL: 04/29/2024 The study was acquired using digital technology and interpreted from soft copy. Current study was also evaluated with ICAD version 7.2. 2D digital mammographic views, as well as 3D digital tomosynthesis were performed in the CC and MLO projections. CLINICAL: Routine screening. Patient has no complaints. Personal history of squamous cess carcinoma. Sister with postmenopausal breast cancer. COMPARISONS: Comparison is made to exams dated: 04/17/2023, 12/08/2021, 04/28/2020, 04/12/2020 [facility], and 04/15/2019 [facility]. BREAST TISSUE:There are scattered areas of fibroglandular density. FINDINGS: There are benign calcifications in both breasts. No significant masses, calcifications, or other findings are seen in either breast. There has been no significant interval change. IMPRESSION: BENIGN There is no mammographic evidence of malignancy. A 1 year screening mammogram is recommended. A letter will be sent to the patient with these results. The patient will be entered into a reminder system with a target due date of 1 year for her next screening exam. Electronically signed by: Ann Marie miguel/asia:04/29/2024 12:49:04 Commercial Real Estate Appraiser(s): RT Bipin(R)(M), [facility] letter sent: Normal Exam Reading location: [facility] Mammogram BI-RADS: Category 2: Benign Bubba Fung PAC IMG MAMMO ORDERABLES Final R esult * [facility] BONE DENSITOMETRY AXIAL SKELETON (12/08/2021 7:45 AM CDT) Anatomical Region Laterality Modality BODY N/A Computed Radiogr aphy 12/08/2021 8:42 AM CDT Impressions 12/08/2021 8:45 AM CDT IMPRESSION: NORMAL BONE DENSITY. REFERENCE: Bone mineral density: Normal (T-score above or = -1.0) Low bone mass (T-score between -1.0 and -2.5) replaces the previously used term osteopenia Osteoporosis (T-score = or below -2.5) Medical evaluation for secondary causes of low bone mineral density may be appropriate. FRAX is a World Health Organization validated fracture risk assessment tool that calculates a person's 10 year probability of a major osteoporosis related fracture and hip fracture. According to the National Osteoporosis Foundation guidelines, postmenopausal women and men age 50 or older with low bone mass and a 10 year probability of a major osteoporosis related fracture = or greater than 20% or a 10 year probability of a hip fracture = or greater than 3% should be considered for treatment. For further information, including treatment recommendations, please refer to the 2013 ISCD Official Positions (http://www.iscd.org) and the NOF's Clinician's Guide to Prevention and Treatment of Osteoporosis (http://www.nof.org/professionals/clinical-guidelines) Narrative 12/08/2021 8:45 AM CDT EXAM DESCRIPTION: [facility] BONE DENSITOMETRY AXIAL SKELETON REASON FOR STUDY: 71 y/o year old F with given history of screening. Social Services Technician/Model: [employer] (S/N [id number]) CLINICAL INFORMATION: Current height: 5 foot 2 inches Maximum height: 5 foot 3 inches Weight: 158 pounds Risk factors: Adult fracture. Secondary osteoporosis. Instrumentation within the spine. COMPARISON: None available. FINDINGS: LEFT FOREARM: Total BMD is 0.963 g/cm2 T-score is 0.9 LEFT HIP: Total BMD is 1.101 g/cm2 T-score is 0.7 Femoral neck BMD is 1.049 g/cm2 T-score is 0.1 FRAX: 10 year risk for a major osteoporotic fracture is 6.9 %, 10 year risk for a hip fracture is 0.4 % THIS IS AN ELECTRONICALLY VERIFIED FINAL REPORT 12/08/2021 8:42 AM - Electronically signed by Lux Chiang M.D. AG: QUINTEN Report ID: [id number] Reading Location: [place] [address] Procedure Note Lux Chiang MD - 12/08/2021 EXAM DESCRIPTION: [facility] BONE DENSITOMETRY AXIAL SKELETON REASON FOR STUDY: 71 y/o year old F with given history of screening. Social Services Technician/Model: [employer] (S/N [id number]) CLINICAL INFORMATION: Current height: 5 foot 2 inches Maximum height: 5 foot 3 inches Weight: 158 pounds Risk factors: Adult fracture. Secondary osteoporosis. Instrumentation within the spine. COMPARISON: None available. FINDINGS: LEFT FOREARM: Total BMD is 0.963 g/cm2 T-score is 0.9 LEFT HIP: Total BMD is 1.101 g/cm2 T-score is 0.7 Femoral neck BMD is 1.049 g/cm2 T-score is 0.1 FRAX: 10 year risk for a major osteoporotic fracture is 6.9 %, 10 year risk for a hip fracture is 0.4 % THIS IS AN ELECTRONICALLY VERIFIED FINAL REPORT 12/08/2021 8:42 AM - Electronically signed by Lux Chiang M.D. AG: QUINTEN Report ID: [id number] Reading Location: [place] [address] IMPRESSION: NORMAL BONE DENSITY. REFERENCE: Bone mineral density: Normal (T-score above or = -1.0) Low bone mass (T-score between -1.0 and -2.5) replaces the previously used term osteopenia Osteoporosis (T-score = or below -2.5) Medical evaluation for secondary causes of low bone mineral density may be appropriate. FRAX is a World Health Organization validated fracture risk assessment tool that calculates a person's 10 year probability of a major osteoporosis related fracture and hip fracture. According to the National Osteoporosis Foundation guidelines, postmenopausal women and men age 50 or older with low bone mass and a 10 year probability of a major osteoporosis related fracture = or greater than 20% or a 10 year probability of a hip fracture = or greater than 3% should be considered for treatment. For further information, including treatment recommendations, please refer to the 2013 ISCD Official Positions (http://www.iscd.org) and the NOF's Clinician's Guide to Prevention and Treatment of Osteoporosis (http://www.nof.org/professionals/clinical-guidelines) Murtaza Porras MD IMG DEXA ORDERABLES Final Result * HEPATITIS C ANTIBODY (10/02/2019 7:20 AM CDT) hepatitis C antibody 0.08 <1 S/CO 10/02/2019 3:02 PM CDT [facility] Comment: Signal/Cutoff ratio < 0.79 is Nondetected Signal/Cutoff ratio 0.80-0.99 is Grayzone Signal/Cutoff ratio > 0.99 is Detected Supplemental assays are recommended if signal/cutoff ratio is >/=1.00. Signal/cutoff ratio result >/= 5.00 is 97% predictive of positivity for recombinant immunoblot assay (RIBA) and will be reported to the [place] Department of Public Health as required. Blood Venipuncture / Unknown 10/02/2019 7:20 AM CDT 10/02/2019 8:34 AM CDT Murtaza Porras MD CHEMISTRY ORDERABLES Jaye cross Result [facility] [address] [place] [address], from Last 3 Months or Most Recently Relevant to Health Maintenance Insurance MEDICARE [place] Care Teams Freezer Unloader Relationship Specialty Start Date End Date Bubba Fung, PAC [address] [place] [address] PCP - General Physician State Auditor 02/01/23 Lindsey Hong, CHIEF CLINICAL OFFICER, SALES REPRESENTATIVE ELECTRIC SERVICE Nurse Practitioner Advanced Practice Nurse 03/22/16
--- OUTSIDE RECORDS SUMMARY | 2024-11-27 15:41 | XMS_ITS | Encounter Summary ---
Author Organization [facility] Address [address] [place] [address] Phone Care Team Providers Care Correctional Nurse Name Role Phone Murtaza Porras MD Primary Care Provider [phone] Lindsey Hong APRN, SLASH TRIMMER Unavailable Marisela Zheng MD Primary Care Provider [phone] Bubba Fung Primary Care Provider + [phone] Reason for Visit * Reason Comments Medication Refill Encounter Details Date Type Department Care Team (Late st Contact Info) Description 11/18/2021 Refill [facility] - [facility]3] [address] [place] [address] Murtaza Porras MD [address] [address] Medication Refill Social History Tobacco Use Types Packs/Day Years Used Date Smoking Tobacco: Former Cigarettes 1 20 0 10/15/1970 - 10/15/1990 Smokeless Tobacco: Never Comments:quit 27 years ago Alcohol Use Standard Drinks/Week Comments No 0 (1 standard drink = 0.6 oz pur e alcohol) none PHQ-2 Answer Date Recorded Total Score - Questions 1-9 0 11/06 Education Answer Date Recorded What is the [...] 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 Requested Prescriptions Pending Prescriptions Disp Refills estradiol (ESTRACE) 0.5 MG Tablet [Pharmacy Med Name: ESTRADIOL 0.5MG TABLETS] 90 Tablet 2 Sig: TAKE 1 TABLET BY MOUTH DAILY Not Delegated - Estrogen and Estrogen Combinations Protocol Failed - 11/18/2021 3:10 AM Failed - This refill cannot be delegated Passed - Visit with relevant provider in past 12 months or upcoming 90 days Recent Visits Date Type Provider Dept 07/06/21 Office Visit Murtaza Porras MD [facility] 05/23/21 Office Visit Klaus Soto APRN, [facility] 03/22/21 Office Visit Murtaza Porras MD [facility] 03/07/21 Telemedicine Murtaza Porras MD [facility] 02/24/21 Office Visit Murtaza Porras MD [facility] Showing recent visits within past 365 days and meeting all other requirements Future Appointments Date Type Provider Dept 11/22/21 Appointment Murtaza Porras MD [facility] Showing future appointments within next 90 days and meeting all other requirements documented in this encounter Plan of Treatment Upcoming Encounters Date Type Department Care Team (Late st Contact Info) Description 02/12/2025 8:40 AM SATELLITE INSTALLATION TECHNICIAN Lab [facility] - Primary Care - [place] [address] [place] [phone] [place] [address] 02/19/2025 9:00 AM SATELLITE INSTALLATION TECHNICIAN Office Visit [facility] - Primary Care - [place] [address] [place] [address] Bubba Fung PAC [address] [facility] [place] [phone] documented as of this encounter Visit Diagnoses Not on filedocumented in this encounter Additional Health Concerns Assessment Noted Time PHQ-9 Depression Total Score: 0 09/01/19 20 8:22 AM CDT documented as of this encounter Care Teams Correctional Nurse Relationship Specialty Start Date End Date Murtaza Porras MD [address] [address] PCP - General Family Medicine 03/16/16 07/02/22 Marisela Zheng MD [address] [place] [address] PCP - General Family Medicine 07/03/22 01/31/23 Bubba Fung PAC [address] [place] [phone] PCP - General Physician Volunteer Services Supervisor 02/01/23 Lindsey Hong APRN, SLASH TRIMMER #[address] [address] Nurse Practitioner Advanced Practice Nurse 03/22/16 documented as of this encounter
--- OUTSIDE RECORDS SUMMARY | 2024-11-27 15:42 | XMS_ITS | Clinical Summary ---
Author Organization [facility] Address [address] [place] [address] Care Team Providers Care Laborer Starch Factory Name Role Phone Murtaza Porras MD Primary Care Provider [phone] Source Comments [facility],non-owned Affiliates and Associated Physician Practices is amultiple site organization consisting of ambulatory clinics and hospital sitesin [place], [place], [place] and [place]. This disclosure is being madepursuant to the Care Everywhere program and may not contain all information available regarding this patient. Last updated 17.[facility] Allergies Active Allergy Reactions Criticality Noted Date Comments Sulfa Drugs Urticaria Medium 03/30/2016 Medications * Be aware that medications may not be up to date on this document. Alwaysverify current medications with the patient. traMADol (ULTRAM) 50 MG tablet Take 50 mg by mouth 4 times daily as needed 10/16/2017 Active meloxicam (MOBIC) 7.5 MG tablet Take 7.5 mg by mouth once daily 10/16/2017 Active Glucosamine-Cho ndroitin (OSTEO BI-FLEX REGULAR STRENGTH PO) Take 1 tablet by mouth once daily Active estradiol (ESTRACE) 0.5 MG tablet Take 0.5 mg by mouth once daily 09/10/2017 Active Cholecalciferol (VITAMIN D-3) 1000 UNITS Take 1 capsule by mouth once daily Active Acetaminophen (TYLENOL) 325 MG CAPS Take 650 mg by mouth as needed Active Misc Natural Products (TURMERIC CURCUMIN) Take 1 tablet by mouth once daily Active melatonin 5 MG sl tablet Take 5 mg by mouth at bedtime Active pyridoxine (VITAMIN B-6) 100 MG tablet Take 100 mg by mouth Active esomeprazole (NEXIUM) 10 MG packet Take 10 mg by mouth once daily 03/10/2018 Active cetirizine (ZYRTEC) 10 MG tablet Take 10 mg by mouth as needed Active Active Problems Problem Noted Date Diagnosed Date Vulvar intraepithelial neoplasia (KOURTNEY) grade 3 0 05/30/2020 Tobacco abuse 05/30/2020 Vulvar lesion 05/30/2020 History of tympanoplasty of right ear 04/14/2018 Generalized OA 03/20/2018 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, left 07/17/2017 Chronic otitis media of right ear 07/17/2017 Conductive hearing loss, tympanic membrane 07/17 Ear ossicle partial loss or necrosis, right 07/07 Perforated ear drum, right 07/17/2017 Retracted ear drum, left 07/17/2017 Tympanosclerosis involving tympanic membrane onl y, right 07/17/2017 Elevated vitamin B12 level 06/11/2017 Chronic joint pain 03/26/2016 Vitamin D deficiency 03/26/2016 Blood pressure elevated without history of HTN 1 05/17/2015 Chronic pain disorder 03/16/2016 Family history of diabetes mellitus 03/16/2016 Family history of rheumatoid arthritis 6 Gastroesophageal reflux disease 03/16/2016 History of back surgery 03/16/2016 Overweight (BMI 25.0-29.9) 03/16/2016 Immunizations Immunization Administration Dates Next Due INFLUENZA VACCINE, TRIV. (AF LURIA, FLUZONE TRIVALENT; 6MO+) (IIV3) 01/02/2019,12/16/2017,02/18/2017,2015 FLU VACCINE TRI IIV3 SPLIT P F IM (FLUVIRIN) 02/18/2017,02/26/2016 INFLUENZA VACCINE, HIGH-DOSE , QUADR. (FLUZONE HIGH-DOSE QUADRIVALENT; 65Y+), 0.7 ML (HD-IIV4) 02/18/2017,02/26/2016 PNEUMOCOCCAL PPSV23 12/16/2017 Pneumococcal Pcv13 Conj 12/16/2017,07/12/2016 Family History Medical History Relation Name Comments Arthritis - Rheumatoid Father Arthritis - Rheumatoid Mother Cirrhosis Mother Osteoporosis Mother Arthritis - Rheumatoid Sister Osteoporosis Sister Thyroid Disease Sister Relation Name Status Comments Father Mother Sister Social History Tobacco Use Types Packs/Day Years Used Date Smoking Tobacco: Former Cigarettes Q uit: 1988 Smokeless Tobacco: Never Alcohol Use Standard Drinks/Week Comments No 0 (1 standard drink = 0.6 oz pur e alcohol) Comments No Sex and Gender Information Value Date Recorded Sex Assigned at Female 07/31/2021 8:45 AM CDT Legal Sex Female 11:35 AM CDT Gender Identity Female 07/31/2021 8:45 AM CDT Sexual Orientation Straight 07/31/2021 8: 45 AM CDT Last Filed Vital Signs Vital Sign Reading Time Taken Comments Blood Pressure 126/82 05/30/2020 8:36 AM PHOTO LAB SPECIALIST Pulse 72 04/14/2018 9:38 AM PHOTO LAB SPECIALIST Temperature 36.7 C (98.1 F) 12/11/2017 6:45 PM CDT Respiratory Rate 16 12/11/2017 6:45 PM CDT Oxygen Saturation 95% 12/11/2017 6:45 PM CDT Inhaled Oxygen Concentration 21% 12/11/2017 6 :05 PM CDT Weight 73 kg (161 lb) 05/30/2020 8:36 AM PHOTO LAB SPECIALIST Height 154.9 cm (5' 1) 05/30/2020 8:36 AM PHOTO LAB SPECIALIST Body Mass Index 30.42 05/30/2020 8:36 AM PHOTO LAB SPECIALIST Plan of Treatment Health Maintenance Due Date Last Done Comments BONE DENSITY TESTING 1950 COLOGUARD (AGES 45-75) - COLON CA SCREENING 1950 COLON MONITORING 1950 COLONOSCOPY - COLON CA SCREENING 1950 CT COLONOGRAPHY - COLON CA SCREENING 1950 Colorectal Cancer Screening 1950 FIT - COLON CA SCREENING 1950 FLEX SIG - COLON CA SCREENING 1950 LIPID TESTING 1950 HEPATITIS C SCREENING 11/15/1968 DTAP/TDAP/TD VACCINES (1 - Tdap) 1969 ZOSTER VACCINE (1 of 2) 2000 SCREENING FOR DIABETES 11/27/2020 11/27/2017 MAMMOGRAM 04/12/2022 04/12/2020, 11/2019, 03/11/2018 COVID-19 VACCINE ( season) 2023 DEPRESSION SCREENING 04/08/2024 INFLUENZA VACCINE (#1) 2024 , 01/02/2019, 12/16/2017, Additional history exists Respiratory Syncytial Virus (RSV) Vaccine Pt: or over 60 yrs (1 - 1-dose 75+ series) 2025 PNEUMOCOCCAL VACCINE 50+ Completed 018, 12/16/2017, 07/12/2016 HEPATITIS B VACCINE Aged Out No longe r eligible based on patient's age to complete this topic HIB VACCINE Aged Out No longer eligi ble based on patient's age to complete this topic HPV VACCINE Aged Out No longer eligi ble based on patient's age to complete this topic MENINGOCOCCAL (Group B) VACCINE SHARED DECISION-MAKING Aged Out No longer eligible based on patient's age to complete this topic MENINGOCOCCAL GROUPS A/C/Y/W VACCINE Aged Out No longer eligible based on patient's age to complete this topic Insurance MEDICARE MEDICARE STATE FARM Advance Directives Documents on File Type Date Recorded Patient Washing Machine Striper Expl anation Adv Directive/Living Will/POA 12/12/2017 3:07 PM * Full Code (Latest Code Status on File) Date Activated Date Inactivated Comments 12/11/2017 12:37 PM 12/11/2017 9:19 PM Care Teams Laborer Starch Factory Relationship Specialty Start Date End Date Murtaza Porras MD PCP - General 11/01/17
--- OUTSIDE RECORDS SUMMARY | 2024-11-27 15:42 | XMS_ITS | Encounter Summary ---
Author Organization [facility] Address [address] [place] [address] Phone Care Team Providers Care Aquatics Lifeguard Name Role Phone Lindsey Hong Lizeth VICK, TIRE CENTER MANAGER Unavailable Bubba Fung PAC Primary Care Provider [phone] Reason for Visit * Reason Comments Medication Refill Encounter Details Date Type Department Care Team (Late st Contact Info) Description 07/31/2023 Refill [facility] - Primary Care - [place] [address] [place] [address] Marisela Zheng MD [address] [place] [address] Medication Refill Social History Tobacco Use Types Packs/Day Years Used Date Smoking Tobacco: Former Cigarettes 1 20 0 10/15/1970 - 10/15/1990 Smokeless Tobacco: Never Comments:quit 27 years ago Alcohol Use Standard Drinks/Week Comments No 0 (1 standard drink = 0.6 oz pur e alcohol) none [facility] Utilities Answer Date Recorded In the past 12 months has [employer] electric, gas, oil, or water company threatened to shut off services in your home? No 06/07/2023 Social Connection and Isolation Panel Answer Date Recorded In a typical week, how many times do you talk on the phone with family, friends, or neighbors? More than three times a week 06/07/2023 How often do you get togethe r with friends or relatives? More than three times a week 06/07/2023 How often do you attend chur ch or orthodox services? More than 4 times per year 06/07/2023 Do you belong to any clubs o r organizations such as religious groups, unions, fraternal or athletic groups, or school groups? Yes 06/07/2023 How often do you attend meet ings of the clubs or organizations you belong to? 1 to 4 times per year 06/07/2023 Are you , , di vorced, , never , or living with a partner? 06/07/2023 AUDIT-C Answer Date Recorded Q1: How often do you have a drink containing alcohol? Never 06/07/2023 Q2: How many drinks containi ng alcohol do you have on a typical day when you are drinking? Patient does not drink Q3: How often do you have si x or more drinks on one occasion? Never 06/07/2023 Overall Financial Resource Strain (CARDIA) Answe r Date Recorded How hard is it for you to pa y for the very basics like food, housing, medical care, and heating? Not hard at all 06/07/2023 PHQ-2 Answer Date Recorded Total Score - Questions 1-9 0 11/06 [facility] - Occupational Stress Questionnaire Answer Date Recorded Do you feel stress - tense, restless, nervous, or anxious, or unable to sleep at night because your mind is troubled all the time - these days? Not at all 06/07/2023 Exercise Vital Sign Answer Date Recorde d On average, how many days pe r week do you engage in moderate to strenuous exercise (like a brisk walk)? 5 days 06/07/2023 On average, how many minutes do you engage in exercise at this level? 20 min 06/07/2023 Hunger Vital Sign Answer Date Recorded Within the past 12 months, y ou worried that your food would run out before you got the money to buy more. Never true 06/07/19 24 Within the past 12 months, t he food you bought just didn't last and you didn't have money to get more. Never true 06/07/2023 PRAPARE - Transportation Answer Date Re corded In the past 12 months, has l ack of transportation kept you from medical appointments or from getting medications? No 04/2023 In the past 12 months, has l ack of transportation kept you from meetings, work, or from getting things needed for daily living? No 06/07/2023 Housing Stability Vital Sign Answer [...] place to sleep or slept in a jail (including now)? 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 * Telephone Encounter - Shana Valerio RN - 07/31/2023 8:03 AM CDT Medication failed the protocol, provider to review and approve the medication order if appropriate. Requested Prescriptions Pending Prescriptions Disp Refills estradiol (ESTRACE) 0.5 MG Tablet [Pharmacy Med Name: ESTRADIOL 0.5 MG TABLET] 90 Tablet 0 Sig: TAKE 1 TABLET BY MOUTH EVERY DAY Not Delegated - Estrogen and Estrogen Combinations Protocol Failed - 07/31/2023 12:44 AM Failed - This refill cannot be delegated Passed - Visit with relevant provider in past 12 months or upcoming 90 days Recent Visits Date Type Provider Dept 07/26/23 Office Visit Bubba Fung PAC [facility] 06/27/23 Office Visit Bubba Fung, PAC [facility] 02/01/23 Office Visit Bubba Fung, PAC [facility] 09/26/22 Office Visit Bubba Fung, PAC [facility] Showing recent visits within past 365 days and meeting all other requirements Future Appointments Date Type Provider Dept 08/05/23 Appointment Bubba Fung PAC [facility] Showing future appointments within next 90 days and meeting all other requirements documented in this encounter Plan of Treatment Upcoming Encounters Date Type Department Care Team (Late st Contact Info) Description 02/12/2025 8:40 AM ROASTER HELPER Lab [facility] [place] [address] [place] [address] [facility] 02/19/2025 9:00 AM ROASTER HELPER Office Visit [facility] [place] [address] [place] [address] Bubba Fung PAC [address] [place] [address] documented as of this encounter Visit Diagnoses Not on filedocumented in this encounter Additional Health Concerns Assessment Noted Time PHQ-9 Depression Total Score: 0 09/01/19 20 8:22 AM CDT documented as of this encounter Care Teams Aquatics Lifeguard Relationship Specialty Start Date End Date Bubba Fung, PAC [address] [place] [address] PCP - General Physician Clutch Assembler 02/01/23 Lnidsey Hong, LINEN AIDE, TIRE CENTER MANAGER Nurse Practitioner Advanced Practice Nurse 03/22/16 documented as of this encounter
[2024-11-27 15:47] VITALS: BP 150/68; PULSE 87; RESP 16; TEMP 36.1; O2SAT 99
--- NOTE | 2024-11-27 15:50 | ED.WOUNDLAC ---
HPI - Wound/Laceration General Chief Complaint: Head Injury Stated Complaint: Laceration To Head Time Seen by Provider: 11/27/24 15:41 Source: patient Mode of arrival: ambulatory Limitations: no limitations History of Present Illness HPI narrative: Karey is a 74-year-old female patient presenting to the clinic today with complaints of a laceration to the left front scalp. She reports she has had a cabinet door open and raised up in hit her head on the cabinet door. Denies any loss of conscious. Did state that area blood a lot. Denies any neck pain. Does have some pain over the area but no other headache. Tetanus up-to-date per patient Related Data Home Medications ?Medication ?Instructions ?Recorded ?Confirmed ?Last Taken ?Type glucosamine-chondroitin 250 mg-200 1 tablet PO DAILY 12/16/19 09/24/24 Unknown History mg tablet (Osteo Bi-Flex) meloxicam submicronized 5 mg 5 mg PO DAILY 12/16/19 09/24/24 Unknown History capsule Held on 02/29/20. Instructions: Resume on 03/03/20. omega 3-njl-ifc-fish oil 1,000 mg 1 cap PO DAILY 12/16/19 09/24/24 Unknown History (120 mg-180 mg) capsule (Fish Oil) tramadol 50 mg tablet 50 mg PO BID PRN Pain 12/16/19 09/24/24 Unknown History Held on 02/29/20. Instructions: Resume on 03/07/20. hold while on Hydrocodone cholecalciferol (vitamin D3) 25 25 mcg PO DAILY 02/19/20 09/24/24 Unknown History mcg (1,000 unit) tablet (Vitamin D3) vitamin B complex (B 1 tablet PO DAILY 02/19/20 09/24/24 Unknown History Complex-Vitamin B12 tablet) calcium carbonate 500 mg PO DAILY 03/12/24 09/24/24 Unknown History omeprazole 20 mg capsule,delayed mg 11/27/24 Unknown History release Allergies Allergy/AdvReac Type Severity Reaction Status Date / Time Sulfa (Sulfonamide Allergy Intermediate Rash Verified 09/16/24 10:43 Antibiotics) Review of Systems Review of Systems: Pertinent positives per HPI. Patient denies any fever, chills, rash, visual changes, dizziness, cough, runny nose, sore throat, shortness of breath, chest pain, palpitations, nausea, vomiting, diarrhea, constipation, abdominal pain, or any urinary issues. 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 Margins negative Chronic back pain History of multiple miscarriages x 3 Vaginal delivery x 2 Acid reflux Surgical History Surgical History History of bladder surgery H/O total cystectomy History of hand surgery Left hand 05/2021 History of squamous cell carcinoma excision H/O dilation and curettage Previous back surgery (~1974) History of cholecystectomy H/O: hysterectomy for AUB/benign reasons Family History Family History Sibling Breast cancer Sibling Hypertension Sibling Hypercholesterolemia Father Acute myocardial infarction Mother Acute myocardial infarction Social History Social History Smoking packs per day: 1 Smoking cigarettes per day: 20.0 Years smoked: 22 Smoking pack-years: 22.00 Smoking status: Former smoker Tobacco type: cigarettes Smoking end date: 02/06/89 Alcohol intake: former Drinks per week: 1 Alcohol use details: DRANK RARELY YOUNG ADULT Substance use: never Lack of Transportation: No Lack of Food: Never True Current Housing: I Have Housing Concerned About Future Housing: No Difficulty Paying Gas/Electric Bills: No Difficulty Paying for Meds: No Currently Unemployed: No Education: Trade/Vocational Certificate Difficulty w/ Childcare or Family Care: No Living arrangements: alone Spiritual care concerns: No Comments At the time of my signature, I reviewed and agree with the nursing past medical, surgical, social, and family history. There is no relevant family history pertinent to the patient complaint. Exam Narrative: General: Well-developed, well nourished, in no apparent distress Head: Normocephalic, atraumatic. Cardio: Regular rate and rhythm, s1 and s2 normal, no murmur appreciated. Resp: Clear to auscultation bilaterally, no rhonchi, rales, wheezing or rubs. Integumentary: [place], warm, and dry, 2 cm scalp laceration to the left front scalp, bleeding controlled Course Course Emergency Course: Portions of this record may have been created with voice recognition software. Level of Care: Express Care Visit Vital Signs Vital signs: Vital signs reviewed Procedures Laceration Laceration 1: Date: 11/27/24 Site: scalp Side (If applicable): left Size (cm): 2 Description: linear Depth: simple, single layer Pre-repair: wound explored and irrigated ====== Skin Level ====== Skin layer closed with: jaun Number of sutures: 7 ====== Subcutaneous Layer ====== ====== Muscle Layer ====== ====== Tendon Layer ====== Dressing: Verbal consent obtained for laceration repair. Risk and benefits explained and patient voiced understanding. Area was cleansed with antiseptic wound wash and sterile normal saline. Seven jaun were placed bringing wound edges well approximate. Patient tolerated procedure fair. MDM - Wound/Laceration MDM Narrative Medical decision making narrative: At the time of visit patient is resting comfortably on the exam table. Patient appears to be nontoxic. Complaints of a laceration to the left front scalp. She reports she has had a cabinet door open and raised up in hit her head on the cabinet door. Denies any loss of conscious. Did state that area blood a lot. Denies any neck pain. Does have some pain over the area but no other headache. Tetanus up-to-date per patient. Retained for laceration repair. Procedure: Laceration repair was performed-place 7 jaun bringing the wound edges well approximate. Patient tolerated fair. Plan: Patient has 2 cm scalp laceration to the left front scalp. Laceration repair was performed. Supportive measures were discussed with the patient and they voiced understanding discharge instructions and agrees to treatment plan. Return precautions reviewed Differential Diagnosis Differential diagnosis: Likely laceration, abscess, abrasion and avulsion of skin Discharge Plan Discharge Clinical Impression: Laceration of scalp Qualifiers: Encounter type: initial encounter Qualified Code(s): S01.01XA - Laceration without foreign body of scalp, initial encounter Patient Disposition: Home Condition: Stable Instructions: Antibiotic Form, Head Laceration (ED) Additional Instructions: Leave bandage on for 24 hours then may remove and apply band aide covering as needed. May take Tylenol as needed for headache for the next 24 hours. Keep wound clean and dry If head laceration- jaun out in 5 days. Watch for signs and symptoms of infection- redness, streaking, swelling, purulent discharge, or increase in pain. Follow up with your PCP for suture removal or return to the Express care. Patient Language: Surinamese Prescriptions: No Action omeprazole 20 mg capsule,delayed release(DR/EC) tramadol 50 mg tablet 50 mg PO BID PRN (Reason: Pain) meloxicam submicronized 5 mg capsule 5 mg PO DAILY omega 3-ohw-hpr-fish oil [Fish Oil] 1,000 mg (120 mg-180 mg) capsule 1 cap PO DAILY glucosamine-chondroitin [Osteo Bi-Flex] 250-200 mg tablet 1 tablet PO DAILY estradiol 0.5 mg tablet 0.5 mg PO .COMPLEX Qty: 60 0RF Rx Instructions: 0.5 mg PO every 3-4 days calcium carbonate 500 mg calcium (1,250 mg) tablet 500 mg PO DAILY vitamin B complex [B Complex-Vitamin B12] Tablet 1 tablet PO DAILY cholecalciferol (vitamin D3) [Vitamin D3] 25 mcg (1,000 unit) Tablet 25 mcg PO DAILY Follow-up/Referrals: PHYSICIAN NOT ON STAFF,NONSTAFF [Primary Care Provider] Time of Disposition: 15:58 Quality NIHSS Nursing Documentation ED NIHSS nursing documentation: reviewed/agree
== END 2024-11-27 16:03 | disposition home or self-care (01) ==
PROVIDERS: Emergency Provider Nurse Practitioner Family
DX: S01.01XA Laceration without foreign body of scalp, initial encounter (principal); Z87.891 Personal history of nicotine dependence; W45.8XXA Other foreign body or object entering through skin, initial encounter
CPT/HCPCS: 12001; 99213; G0463

== ENCOUNTER 2024-12-02 12:35 | Emergency (ER) | payer MEDICARE, SELFPAY ==
--- OUTSIDE RECORDS SUMMARY | 2024-12-02 12:37 | XMS_ITS | Encounter Summary ---
Author Organization [facility] Address [address] [place] [address] Phone Care Team Providers Care Eating Disorder Specialist Name Role Phone Murtaza Porras MD Primary Care Provider [phone] Lindsey Hong APRN, RETAIL WIRELESS ASSOCIATE Unavailable Marisela Zheng MD Primary Care Provider + [phone] Bubba Fung Primary Care Provider + [phone] Reason for Visit * Reason Comments Medication Refill Encounter Details Date Type Department Care Team (Late st Contact Info) Description 11/22/2020 [facility]ill [facility] [address] [place] [address] Murtaza Porras MD #[address] [address] Medication Refill Social History Tobacco Use Types [...] 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 Not on file Not on file Not [...] st Contact Info) Description 02/12/2025 8:40 AM WARP KNITTER HELPER Lab [facility] [place] [address] [place] [address] [facility] 02/19/2025 9:00 AM WARP KNITTER HELPER Office Visit [facility] Primary [facility] [place] [address] [place] [address] Bubba Fung, [facility] [address] [place] [address] documented as of this encounter Visit Diagnoses Not on filedocumented in this encounter Additional Health Concerns Infection Onset Date Last Indicated Resolved Time COVID - 19 03/05/2021 03/05/2021 03/25/2021 12:1 6 AM WARP KNITTER HELPER Assessment Noted Time PHQ-9 Depression Total Score: 0 09/01/19 20 8:22 AM CDT documented as of this encounter Care Teams Eating Disorder Specialist Relationship Specialty Start Date End Date Murtaza Porras MD [address] [address] PCP - General Family Medicine 03/16/16 07/02/22 Marisela Zheng MD [address] [place], [place] [id number] PCP - General Family Medicine 07/03/22 01/31/23 Bubba Fung, PAC [address] [place] [address] PCP - General Physician Boiler Riveter 02/01/23 Lindsey Hong, DIRECT SUPPORT STAFF, RETAIL WIRELESS ASSOCIATE #[address] [address] Nurse Practitioner Advanced Practice Nurse 03/22/16 documented as of this encounter
--- OUTSIDE RECORDS SUMMARY | 2024-12-02 12:37 | XMS_ITS | Encounter Summary ---
Author Organization [facility] Address [address] [place] [address] Phone Care Team Providers Care Vp Scientific Name Role Phone Murtaza Porras MD Primary Care Provider + [phone] Lindsey Hong APRN, [employer] Unavailable [phone] Marisela Zheng MD Primary Care Provider [phone] Bubba Fung Primary Care Provider [phone] Reason for Referral * Radiology Services (Routine) - Closed Specialty Diagnoses / Procedures Referred By Bebeto roberts Referred To Contact Radiology Diagnoses Pre-op exam Procedures EKG 12 LEAD Raj Ferrer MD Phone: tel: fax: Referral ID Status Reason Start Date Expiration Date Visits Re quested Visits Authorized [id number] Closed 05/22/2021 1 1 LE BEVELER Encounter Details Date Type Department Care Team (Latest Contact Info) Description 05/22/2021 Transcribe Orders [facility] Patient Access Admitting [address] [place] [id number] Raj Ferrer MD [address] [place] [address] Pre-op exam (Primary Dx) Social History Tobacco [...] 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 No / Unsure 05/22/2021 9:10 PM CIRCLE BEVELER documented as of this encounter Plan of Treatment Upcoming Encounters Date Type Department Care Team (Late st Contact Info) Description 02/12/2025 8:40 AM CIRCLE BEVELER Lab [facility] - [address] [address] [facility] 02/19/2025 9:00 AM CIRCLE BEVELER Office Visit [facility] [place] [address] [place] [address] Bubba Fung, PAC [address] [place] [address] documented as of this encounter Results * EKG 12 LEAD (05/23/2021 11:33 AM CIRCLE BEVELER) Ventricular Rate BPM EXTERNAL EKG Atrial Rate BPM EXTERNAL EKG P-R Interval 152 ms EXTERNAL EKG QRS Duration 70 ms EXTERNAL EKG Q-T Duration 336 ms EXTERNAL EKG QTC CALCULATION 388 ms EXTERNAL EKG P [place] 68 degrees EXTERNAL EKG R [place] 61 degrees EXTERNAL EKG T [place] 10 degrees EXTERNAL EKG 05/23/2021 11:3 3 AM CIRCLE BEVELER Impressions EXTERNAL EKG - 05/24/2021 11:50 AM CIRCLE BEVELER Sinus rhythm Anterior T wave abnormality is nonspecific Comparison Summary: No serial comparison made Summary: Borderline ECG Confirmed by Johnathon Cortez [id number] on 05/24/2021 11:50:14 AM Narrative Procedure Note Arabella Diego MD - 05/24/2021 IMPRESSION: Sinus rhythm Anterior T wave abnormality is nonspecific Comparison Summary: No serial comparison made Summary: Borderline ECG Confirmed by Johnathon Cortez [id number] on 05/24/2021 11:50:14 AM us Raj Ferrer MD IMG ECG ORDERABLES Final Result EXTERNAL EKG * (ABNORMAL) CMP (COMPREHENSIVE METABOLIC PANEL) (05/23/2021 11:28 AM CIRCLE BEVELER) SODIUM 141 136 - 144 mmol/L 05/23/2021 12:32 PM CIRCLE BEVELER [facility] POTASSIUM 4.6 3.5 - 5.1 mmol/L 05/23/2021 12:32 PM [facility] CHLORIDE 106 100 - 110 mmol/L 05/23/2021 12:32 PM [facility] CO2, VENOUS 25 22 - 32 mmol/L 05/23/2021 12:32 PM CIRCLE BEVELER [facility] ANION GAP 14.6 8.0 - 20.0 mmol/L 05/23/2021 12:32 PM CIRCLE BEVELER [facility] GLUCOSE 85 70 - 99 mg/dL 05/23/2021 12:32 PM CIRCLE BEVELER [facility] BUN 18 8 - 23 mg/dL 05/23/2021 12:32 PM [facility] CREATININE, BLOOD 0.68 0.60 - 1.10 mg/dL 05/23/2021 12:32 PM [facility] BUN/CREATININE RATIO 26(H) 12 - 20 ratio 05/23/2021 12:32 PM [facility] TOTAL PROTEIN 7.1 6.0 - 8.3 g/dL 05/23/2021 12:32 PM [facility] ALBUMIN 4.5 3.5 - 5.2 g/dL 05/23/2021 12:32 PM [facility] Comment: The colormetric methods used for the determination of Albumin may lead to falsely elevated test results in patients suffering from renal failure or insufficiency due to interference with other proteins. A/G RATIO 1.7 1.0 - 2.0 05/23/2021 12:32 PM [facility] CALCIUM 9.5 8.9 - 10.3 mg/dL 05/23/2021 12:32 PM [facility] T BILI <0.3 <=1.2 mg/dL 05/23/2021 12:32 PM [facility] SGOT (AST) 20 <=32 U/L 05/23/2021 12:32 PM [facility] SGPT (ALT) 19 <=41 U/L 05/23/2021 12:32 PM [facility] ALKALINE PHOSPHATASE 81 35 - 105 U/L 05/23/2021 12:32 PM [facility] GFR, EST. NONAFRICAN >60 >=60 05/23/2021 12:32 PM [facility] GFR, EST. >60 >=60 022 12:32 PM [facility] Comment: Creatinine Clearance is the preferred criteria for selecting drug dose adjustments in renally impaired patients. The GFR is provided as additional pertinent clinical information. GFR is reported in mL/min/1.73 sq m. IS THE PATIENT REQUIRED TO BE FASTING? No 05/23/2021 12:32 PM [facility] Blood Venipuncture / Unknown 05/23/2021 11:28 AM CIRCLE BEVELER 05/23/2021 11:47 AM CIRCLE BEVELER us Raj Ferrer MD CHEMISTRY ORDERABLES Final Resul t [facility] [address] [place] [address] documented in this encounter Visit Diagnoses Diagnosis Pre-op exam- Primary Preoperative examination, unspecified Pre-op exam Preoperative examination, unspecified documented in this encounter Additional Health Concerns Assessment Noted Time PHQ-9 Depression Total Score: 0 09/01/19 20 8:22 AM CDT documented as of this encounter Care Teams Vp Scientific Relationship Specialty Start Date End Date Murtaza Porras MD #[address] [address] PCP - General Family Medicine 03/16/16 07/02/22 Marisela Zheng MD [address] [place], [place] [phone] PCP - General Family Medicine 07/03/22 01/31/23 Bubba Fung, PAC [address] [place] [address] PCP - General Physician Disease And Insect Control Boss 02/01/23 Lindsey Hong, POLICE DETENTION ATTENDANT, [employer] #[address] [address] Nurse Practitioner Advanced Practice Nurse 03/22/16 documented as of this encounter
--- OUTSIDE RECORDS SUMMARY | 2024-12-02 12:37 | XMS_ITS | Clinical Summary ---
Author Organization [facility] Address [address], [facility] [address] [place] [address] Phone Care Team Providers Care Sdv Pilot/Navigator/Dds Operator Name Role Phone Lindsey Hong APRN, CYCLE SPECIALIST Unavailable [phone] Bubba Fung PAC Primary Care Provider Allergies Active Allergy Reactions Criticality Noted Date Comments Amoxicillin-Pot Clavulanate Itching 11/14/19 24 Dizziness, itching Sulfa Antibiotics Hives 03/30/2016 Medications traMADol (ULTRAM) 50 MG Tablet Take 50 mg by mouth 3 times daily as needed. 03/14/20 16 Active [place]-3 Fatty Acids (FISH OIL PO) Take by [...] Type Department Care Team Description 10/21/2024 Refill [facility] - Primary Care - [place] [address] [place] [address] Bubba Fung, LUPE Medication Refill from [...] Valent 8 Pneumococcal conjugate PCV20 , polysaccharide XKP422 conjugate, adjuvant, PF 03/13/2023 RSV, Recombinant, Protein [...] = 0.6 oz pur e alcohol) none [facility] Utilities Answer Date Recorded In the past 12 months has e [employer] gas, oil, or water company threatened to [...] How often do you attend chur or mosque services? More than 4 times per year 08/10/2024 Do you belong to any clubs o r organizations such as methodist groups, unions, fraternal or athletic groups, or [...] Total Score - Questions 1-9 0 07/07 [facility] - Occupational Stress [...] place to sleep or slept in a care home (including now)? No 06/07/2023 Housing Stability Vital Sign Answer Wesley e Recorded In the last 12 months, was t here a time when you were not able to pay the mortgage or rent on time? No 08/10/2024 In the past 12 months, how m any times have you moved where you were living? 0 08/10/2024 At any time in the past 12 m [facility], were you homeless or living in a care home (including now)? 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 Not on file Not [...] st Contact Info) Description 02/12/2025 8:40 AM MANIFEST/ORDER ORGANIZER PRINT ORDERS Lab [facility] [place] [address] [place], [place] [address] [address] [facility] 02/19/2025 9:00 AM MANIFEST/ORDER ORGANIZER PRINT ORDERS Office Visit [facility] - [place] [address] [place] [address] Bubba Fung PAC [address] [place] [address] Health Maintenance Due Date Last [...] CAD W YADIEL Routine 04/29/2024 8:49 AM MANIFEST/ORDER ORGANIZER PRINT ORDERS Breast cancer screening by mammogram JERSON BONE DENSITOMETRY AXIAL SKELETON Routine 12/08/2021 7:45 AM CDT Postmenopausal HEPATITIS C ANTIBODY Routine 10/02/2019 7:20 AM CDT Encounter for hepatitis C screening test for low risk patient from Last 3 Months or Most Recently Relevant to Health Maintenance Results * JERSON SCREENING BILATERAL DIGITAL W CAD W YADIEL (04/29/2024 8:49 AM MANIFEST/ORDER ORGANIZER PRINT ORDERS) Anatomical Region Laterality Modality breast Bilateral Mammography 04/29/2024 9:20 AM MANIFEST/ORDER ORGANIZER PRINT ORDERS Narrative 04/29/2024 2:44 PM MANIFEST/ORDER ORGANIZER PRINT ORDERS - JERSON SCREENING BILATERAL DIGITAL W CAD [...] to exams dated: 04/17/2023, 12/08/2021, 04/28/2020, 04/12/2020 [facility], and 04/15/2019 [facility]. BREAST TISSUE:There are scattered areas of fibroglandular [...] Electronically signed by: Ann Marie miguel/penharleen:04/29/2024 12:49:04 Rough Carpenter(s): RT Bipin(R)(M), [facility] letter sent: Normal Exam Reading location: [facility] Mammogram BI-RADS: Category 2: Benign Procedure [...] to exams dated: 04/17/2023, 12/08/2021, 04/28/2020, 04/12/2020 [facility], and 04/15/2019 [facility]. BREAST TISSUE:There are scattered areas of fibroglandular [...] Electronically signed by: Ann Marie miguel/asia:04/29/2024 12:49:04 Rough Carpenter(s): RT Bipin(R)(M), [facility] letter sent: Normal Exam Reading location: [facility] Mammogram BI-RADS: Category 2: Benign Bubba Fung PAC IMG MAMMO ORDERABLES Final R esult * [facility] BONE DENSITOMETRY AXIAL SKELETON (12/08/2021 7:45 AM [...] Narrative 12/08/2021 8:45 AM CDT EXAM DESCRIPTION: [facility] BONE DENSITOMETRY AXIAL SKELETON REASON FOR STUDY: 71 y/o year old F with given history of screening. Beekeeper/Model: [employer] (S/N [id number]) CLINICAL INFORMATION: Current height: 5 foot 2 [...] Lux Chiang M.D. AG: QUINTEN Report ID: [id number] Reading Location: [place] [address] Procedure Note Lux Chiang MD - 12/08/2021 EXAM DESCRIPTION: [facility] BONE DENSITOMETRY AXIAL SKELETON REASON FOR STUDY: 71 y/o year old F with given history of screening. Beekeeper/Model: [employer] (S/N [id number]) CLINICAL INFORMATION: Current height: 5 foot 2 [...] Lux Chiang M.D. AG: QUINTEN Report ID: [id number] Reading Location: [place] [address] IMPRESSION: NORMAL BONE DENSITY. REFERENCE: Bone mineral [...] 0.08 <1 S/CO 10/02/2019 3:02 PM CDT [facility] Comment: Signal/Cutoff ratio < 0.79 is Nondetected Signal/Cutoff ratio 0.80-0.99 is Grayzone Signal/Cutoff ratio > 0.99 is Detected Supplemental assays are recommended if signal/cutoff ratio is >/=1.00. Signal/cutoff ratio result >/= 5.00 is 97% predictive of positivity for recombinant immunoblot assay (RIBA) and will be reported to the [place] Department of Public Health as required. Blood Venipuncture / Unknown 10/02/2019 7:20 AM CDT 10/02/2019 8:34 AM CDT Murtaza Porras MD CHEMISTRY ORDERABLES Jaye cross Result [facility] [address] [place] [address], from Last 3 Months or Most Recently Relevant to Health Maintenance Insurance MEDICARE [place] Care Teams Sdv Pilot/Navigator/Dds Operator Relationship Specialty Start Date End Date Bubba Fung, PAC [address] [place] [address] PCP - General Physician Lockstitch Waistline Joiner 02/01/23 Lindsey Hong, PIANO SOUNDING BOARD MATCHER, CYCLE SPECIALIST Nurse Practitioner Advanced Practice Nurse 03/22/16
--- OUTSIDE RECORDS SUMMARY | 2024-12-02 12:37 | XMS_ITS | Encounter Summary ---
Author Organization [facility] Address [address] [place] [address] Phone Care Team Providers Care Mortgage Loan Processor Name Role Phone Lnidsey Hong Lizeth VICK, DEPUTY [place] MARSHAL Unavailable Bubba Fung PAC Primary Care Provider [phone] Reason for Visit * Reason Comments Medication Refill Encounter Details Date Type Department Care Team (Late st Contact Info) Description 07/31/2023 Refill [facility] - Primary Care - [place] [address] [place] [address] Marisela Zheng MD [address] [place] [address] Medication Refill Social History Tobacco Use Types Packs/Day Years Used Date Smoking Tobacco: Former Cigarettes 1 20 0 10/15/1970 - 10/15/1990 Smokeless Tobacco: Never Comments:quit 27 years ago Alcohol Use Standard Drinks/Week Comments No 0 (1 standard drink = 0.6 oz pur e alcohol) none [facility] Utilities Answer Date Recorded In the past 12 months has [employer] electric, gas, oil, or water company threatened [...] often do you attend chur ch or worship services? More than 4 times per year 06/07/2023 Do you belong to any clubs o r organizations such as jainism groups, unions, fraternal or athletic groups, or [...] Total Score - Questions 1-9 0 11/06 [facility] Occupat ional Health - Occupational [...] place to sleep or slept in a snf (including now)? 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 02/19/2025 9:00 AM SKILLED HELPER Office Visit [facility] [place] 2[facility] - [place] [address] [place] [address] Bubba Fung PAC [address] [place] [address] documented as of this encounter Visit Diagnoses Not on filedocumented in this encounter Additional Health Concerns Assessment Noted Time PHQ-9 Depression Total Score: 0 09/01/19 20 8:22 AM CDT documented as of this encounter Care Teams Mortgage Loan Processor Relationship Specialty Start Date End Date Bubba Fung, PAC [address] [place] [address] PCP - General Physician Hse Specialist 02/01/23 Lindsey Hong, RN NEUROLOGY, DEPUTY [place] Nurse Practitioner Advanced Practice Nurse 03/22/16 documented as of this encounter
--- OUTSIDE RECORDS SUMMARY | 2024-12-02 12:37 | XMS_ITS | Clinical Summary ---
Author Organization [facility] Address [address] [place] [address] Care Team Providers Care Insulation Packer Name Role Phone Murtaza Porras MD Primary Care Provider [phone] Source Comments [facility],non-owned Affiliates and Associated Physician Practices is amultiple site organization consisting of ambulatory clinics and hospital sitesin [place], [place], [place] and [place]. This disclosure is being madepursuant to the Care Everywhere program and may not contain all information available regarding this patient. Last updated 17.[facility] Allergies Active Allergy Reactions Criticality Noted Date [...] Comments Blood Pressure 126/82 05/30/2020 8:36 AM GRAPHIC COORDINATOR Pulse 72 04/14/2018 9:38 AM GRAPHIC COORDINATOR Temperature 36.7 C (98.1 F) 12/11/2017 6:45 PM CDT Respiratory Rate 16 12/11/2017 6:45 PM CDT Oxygen Saturation 95% 12/11/2017 6:45 PM CDT Inhaled Oxygen Concentration 21% 12/11/2017 6 :05 PM CDT Weight 73 kg (161 lb) 05/30/2020 8:36 AM GRAPHIC COORDINATOR Height 154.9 cm (5' 1) 05/30/2020 8:36 AM GRAPHIC COORDINATOR Body Mass Index 30.42 05/30/2020 8:36 AM GRAPHIC COORDINATOR Plan of Treatment Health Maintenance Due Date [...] Documents on File Type Date Recorded Patient Veterinary Assistant Expl anation Adv Directive/Living Will/POA 12/12/2017 3:07 PM * Full Code (Latest Code Status on File) Date Activated Date Inactivated Comments 12/11/2017 12:37 PM 12/11/2017 9:19 PM Care Teams Insulation Packer Relationship Specialty Start Date End Date Murtaza oPrras MD PCP - General 11/01/17
--- OUTSIDE RECORDS SUMMARY | 2024-12-02 12:37 | XMS_ITS | Encounter Summary ---
Author Organization [facility] Address [address] [place] [address] Phone Care Team Providers Care Life Cycle Assessment Analyst Name Role Phone Murtaza Porras MD Primary Care Provider [phone] Lindsey Hong APRN, PLANT ENGINEERING MANAGER Unavailable Marisela Zheng MD Primary Care Provider [phone] Bubba Fung Primary Care Provider [phone] Reason for Visit * Reason Comments Medication Refill Encounter Details Date Type Department Care Team (Late st Contact Info) Description 11/18/2021 Refill [facility] [address] [place] [address] Murtaza Porras MD [address] [address] Medication Refill Social History Tobacco Use Types [...] 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 Not on file Not [...] Office Visit Klaus Soto APRN, JR [facility] 03/22/21 Office Visit [facility] [...] st Contact Info) Description 02/12/2025 8:40 AM TUCK POINTER Lab [facility] - Primary Care - [place] [address] [place] [address] [phone] [place] [address] 02/19/2025 9:00 AM TUCK POINTER Office Visit [facility] - Primary Care - [place] [address] [place] [address] Bubba Fung PAC [address] [facility] [place] [address] documented as of this encounter Visit Diagnoses Not on filedocumented in this encounter Additional Health Concerns Assessment Noted Time PHQ-9 Depression Total Score: 0 09/01/19 20 8:22 AM CDT documented as of this encounter Care Teams Life Cycle Assessment Analyst Relationship Specialty Start Date End Date Murtaza Porras MD #[address] [address] PCP - General Family Medicine 03/16/16 07/02/22 Marisela Zheng MD [address] [place] [address] PCP - General Family Medicine 07/03/22 01/31/23 Bubba Fung PAC [address] [place] [address] PCP - General Physician Dyed Yarn Operator 02/01/23 Lindsey Hong APRN, PLANT ENGINEERING MANAGER #[address] [address] Nurse Practitioner Advanced Practice Nurse 03/22/16 documented as of this encounter
[2024-12-02 12:43] VITALS: BP 149/80; PULSE 90; RESP 18; TEMP 36.1; O2SAT 98
--- NOTE | 2024-12-02 12:49 | ED.WOUNDLAC ---
HPI - Wound/Laceration General Chief Complaint: Wound/Laceration Stated Complaint: remove jaun Time Seen by Provider: 12/02/24 12:49 Source: patient Mode of arrival: ambulatory Limitations: no limitations History of Present Illness HPI narrative: 74 yo F presents for staple removal from scalp. Placed 5 days ago after hitting head on kitchen cabinet. Pt has no complaints today. All systems reviewed and negative except as noted above. Related Data Home Medications ?Medication ?Instructions ?Recorded ?Confirmed ?Last Taken ?Type glucosamine-chondroitin 250 mg-200 1 tablet PO DAILY 12/16/19 09/24/24 Unknown History mg tablet (Osteo Bi-Flex) meloxicam submicronized 5 mg 5 mg PO DAILY 12/16/19 09/24/24 Unknown History capsule Held on 02/29/20. Instructions: Resume on 03/03/20. omega 9-kbp-njm-fish oil 1,000 mg 1 cap PO DAILY 12/16/19 09/24/24 Unknown History (120 mg-180 mg) capsule (Fish Oil) tramadol 50 mg tablet 50 mg PO BID PRN Pain 12/16/19 09/24/24 Unknown History Held on 02/29/20. Instructions: Resume on 03/07/20. 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 Margins negative Chronic back pain History of multiple miscarriages x 3 Vaginal delivery x 2 Acid reflux Surgical History Surgical History History of bladder surgery H/O total cystectomy History of hand surgery Left hand 05/2021 History of squamous cell carcinoma excision H/O dilation and curettage Previous back surgery (~1974) History of cholecystectomy H/O: hysterectomy for AUB/benign reasons Family History Family History Sibling Breast cancer Sibling Hypertension Sibling Hypercholesterolemia Father Acute myocardial infarction Mother Acute myocardial infarction Social History Social History Smoking packs per day: 1 Smoking cigarettes per day: 20.0 Years smoked: 22 Smoking pack-years: 22.00 Smoking status: Former smoker Tobacco type: cigarettes Smoking end date: 02/06/89 Alcohol intake: former Drinks per week: 1 Alcohol use details: DRANK RARELY YOUNG ADULT Substance use: never Lack of Transportation: No Lack of Food: Never True Current Housing: I Have Housing Concerned About Future Housing: No Difficulty Paying Gas/Electric Bills: No Difficulty Paying for Meds: No Currently Unemployed: No Education: Trade/Vocational Certificate Difficulty w/ Childcare or Family Care: No Living arrangements: alone Spiritual care concerns: No Comments At time of signature, agree with nursing past medical, surgical, social and family history. There is no relevant family history pertinent to the presenting complaint. Exam Narrative: GENERAL: This is a well-nourished, well-developed patient, in no apparent distress. HEAD: normocephalic, Healing scalp laceration frontal aspect to L side with [address] No signs of infection. EYES: PERRL. Sclera clear/white. Vision is grossly intact. EARS: External ears normal NOSE: External nose normal NECK: Neck supple, non-tender without lymphadenopathy, masses or thyromegaly. CARDIOVASCULAR: Regular rate and rhythm without murmurs, gallops, or rubs. RESPIRATORY: Clear to auscultation. Breath sounds equal bilaterally. No wheezes, rales, or rhonchi. SKIN: warm, Dry, intact with no suspicious lesions or rash, good texture and turgor. NEURO: awake, alert, and oriented to person, place and time. There were no obvious focal neurologic abnormalities. EXTREMITIES: No joint tenderness, effusion, or edema noted. Course Course Level of Care: Express Care Visit Vital Signs Vital signs: Vital Signs Temperature 36.1 C L 12/02/24 12:43 Pulse Rate 90 12/02/24 12:43 Respiratory Rate 18 12/02/24 12:43 Blood Pressure 149/80 H 12/02/24 12:43 Pulse Oximetry 98 12/02/24 12:43 Oxygen Delivery Room Air 12/02/24 12:43 Temperature 36.1 C L 12/02/24 12:43 Pulse Rate 90 12/02/24 12:43 Respiratory Rate 18 12/02/24 12:43 Blood Pressure 149/80 H 12/02/24 12:43 Pulse Oximetry 98 12/02/24 12:43 Oxygen Delivery Room Air 12/02/24 12:43 reviewed Procedures Other Procedure Procedure 1: Other Procedure: 7 jaun removed using staple remover. no complications. MDM - Wound/Laceration MDM Narrative Medical decision making narrative: 7 jaun removed without complication. no signs of infection. Discharge Plan Discharge Clinical Impression: Encounter for removal of jaun Patient Disposition: Home Condition: Stable Additional Instructions: Seven jaun were removed from your head wound today. No signs on infection were seen. Avoid scrubbing when washing hair to allow healing. Patient Language: Occitan Prescriptions: No Action omeprazole 20 mg capsule,delayed release(DR/EC) tramadol 50 mg tablet 50 mg PO BID PRN (Reason: Pain) meloxicam submicronized 5 mg capsule 5 mg PO DAILY omega 3-tev-wul-fish oil [Fish Oil] 1,000 mg (120 mg-180 mg) capsule 1 cap PO DAILY glucosamine-chondroitin [Osteo Bi-Flex] 250-200 mg tablet 1 tablet PO DAILY estradiol 0.5 mg tablet 0.5 mg PO .COMPLEX Qty: 60 0RF Rx Instructions: 0.5 mg PO every 3-4 days calcium carbonate 500 mg calcium (1,250 mg) tablet 500 mg PO DAILY vitamin B complex [B Complex-Vitamin B12] Tablet 1 tablet PO DAILY cholecalciferol (vitamin D3) [Vitamin D3] 25 mcg (1,000 unit) Tablet 25 mcg PO DAILY Follow-up/Referrals: PHYSICIAN NOT ON STAFF,NONSTAFF [Primary Care Provider] Time of Disposition: 12:56
== END 2024-12-02 13:01 | disposition home or self-care (01) ==
PROVIDERS: Emergency Provider Nurse Practitioner Family
DX: Z48.02 Encounter for removal of sutures (principal); Z87.891 Personal history of nicotine dependence
CPT/HCPCS: 99211; G0463